=== PATIENT | female | born 1935 | race Caucasian/White ===

== ENCOUNTER 2020-09-09 14:15 | Inpatient (IN) | payer MEDICARE, OTHER ==
[~2020-09-09] VITALS: Ht 162.6 cm; Wt 68.0 kg
[2020-09-09] MEDS ORDERED: SODIUM CHLORIDE 0.9% 1000ML 1,000 ML IV STA (14:35)
[2020-09-09 14:56] LABS: BASOPHILS # (AUTO) 0.1 (0.0-0.1); BASOPHILS % 0.3 % (0.0-1.0); HEMATOCRIT 36.4 % (34.2-44.1); HEMOGLOBIN 11.9 g/dL (12.0-16.0); LYMPHOCYTES # (AUTO) 0.7 (1.0-3.2); LYMPHOCYTES % 3.4 % (18.0-39.1); MEAN CORPUSCULAR HEMOGLOBIN 31.6 pg (28-32); MEAN CORPUSCULAR HGB CONC 32.7 g/dL (31-35); MEAN CORPUSCULAR VOLUME 96.8 fL (81-99); MONOCYTES # (AUTO) 1.6 (0.2-0.8); MONOCYTES % 8.4 % (4.4-11.3); NEUTROPHILS # (AUTO) 16.8 (2.1-6.9); NEUTROPHILS % 87.2 % (38.7-80.0); PLATELET COUNT 224 x10e3/uL (140-360); RED BLOOD COUNT 3.76 x10e6/uL (3.6-5.1)
[2020-09-09 15:06] LABS: INR 0.99; PARTIAL THROMBOPLASTIN TIME 29.3 seconds (23.8-35.5); PROTHROMBIN TIME 13.6 seconds (11.9-14.5)
[2020-09-09 15:16] LABS: ALBUMIN 3.4 g/dL (3.5-5.0); ANION GAP 13.4 mmol/L (8-16); CALCIUM 9.2 mg/dL (8.4-10.2); CREATININE, SERUM 1.21 mg/dL (0.57-1.11); MAGNESIUM 2.1 MG/DL (1.3-2.1); POTASSIUM 4.4 mmol/L (3.5-5.1)
[2020-09-09 15:20] LABS: CREATINE KINASE MB 1.3 ng/mL (0-5.0)
--- OUTSIDE RECORDS SUMMARY | 2020-09-09 15:33 | XMS REPORT | Continuity of Care Document ---
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 [facility] Shortness Of Breath Active 10/13/2013 [facility] ABDMNAL PAIN GENERALIZED Active [facility] FEM GENITAL SYMPTOMS NOS Active [facility] Medications Medication Details Route Status Patient Instructions Ordering Provider Order Date Source Jentadueto 2.5-500 MG Oral Tablet (Active) [facility] Synthroid 50 MCG Oral Tablet (Active) [facility] Glimepiride 4 MG Oral Tablet (Active) Active [facility] Calcium 600+D TABS (Active) Active [facility] Iron TABS (Active) Active [facility] MagOx 400 TABS (Active) Active [facility] Multivitamins CAPS (Active) Active [facility] Donepezil HCl 10 MG Oral Tablet (Active) [facility] Ramipril 2.5 MG Oral Capsule (Active) Active [facility] Venlafaxine HCl ER 75 MG Oral Capsule Ex tended Release 24 Hour (Active) A ctive [facility] Crestor 5 MG Oral Tablet (Act abe) Active [facility] B-12 CAPS (Active) Active [facility] Allergies, Adverse Reactions, Alerts Substance Category Reaction Severity Reaction type Status Date Reported Comments Source Chem [place] Tramadol drug allergy Allergy Active [facility] Tolectin 600 drug allergy Allergy Active [facility] Tramadol drug allergy drug allergy Active [facility] [place] TABS drug allergy drug allergy Active [facility] Immunizations No Data Provided for This Section Results No Data Provided for This Section Pathology Reports No Data Provided for This Section Diagnostic Reports No Data Provided for This Section Consultation Notes No Data Provided for This Section Discharge Summaries No Data Provided for This Section History and Physicals No Data Provided for This Section Vital Signs No Data Provided for This Section Encounters Location Location Details Encounter Type Encounter Number Reason For Visit Attending Provider ADM Date DC Date Status Source [facility] Outpatient [id number] ABD PAIN, PELVIS PAIN AISLINN AGUILAR 2011 2011 Active [facility] AUDIT [id number] 10/13/2013 10/13/2013 [facility] Procedures No Data Provided for This Section Assessment and Plan No Data Provided for This Section Plan of Care No Data Provided for This Section Social History Social History Date Source Never A Smoker (Active) Activ ities Of Daily Living (Active) Exercising Erratically (Active) 10/13/2013 [facility] Family History Value Date S ource Paternal history of Cancer (Activ e) Sororal history of Ovarian Cancer (V16.41); (Active) Sororal history of Lung Cancer (V16.1); (Active) Maternal grandmother's history of Heart Disease (V17.49); (Active) Sororal history of Hypertension (V17.49); (Active) 10/13/2013 [facility] Advance Directives Order Name Results Value Date Source Advance Directives Advance Dir ectives No Advance Directives available. 10/13/2013 [facility] Functional Status No Data Provided for This Section
--- NOTE | 2020-09-09 15:57 | Diagnostic Imaging Report ---
EXAMINATION: CHEST SINGLE (PORTABLE) INDICATION: Fever, altered mental status COMPARISON: None FINDINGS: LINES/TUBES:Baclofen pump. LUNGS:The lungs are well-inflated. No focal consolidation or pulmonary edema. PLEURA:No pleural effusion or pneumothorax. MEDIASTINUM:The cardiomediastinal silhouette appears normal in size and shape. BONES/SOFT TISSUES:No acute osseous injury. Left axillary surgical clips. ABDOMEN:No free air under the diaphragm. Right upper quadrant cholecystectomy clips. IMPRESSION: No focal pneumonia or pulmonary edema. Signed by: Antonietta Rascon MD on 09/09/2020 3:54 PM
--- NOTE | 2020-09-09 16:00 | Diagnostic Imaging Report ---
CT BRAIN WO HISTORY: Altered mental status COMPARISON: Report from head CT dated 02/23/2016 Technique: Noncontrast axial scans were obtained from skull base to the vertex. Coronal and sagittal reconstructions obtained from the axial data. One or more of the following dose reduction techniques were used: Automated exposure control, adjustment of the mA and/or kV according to patient size, and/or utilization of iterative reconstruction technique. DISCUSSION: Scalp/Skull: Unremarkable. Brain sulci: Mildly prominent. Ventricles: Compensatory dilatation. Extra-axial spaces: No masses or fluid collections. Carotid and vertebral artery calcifications are present. Parenchyma: Moderate bilateral deep white matter hypodensity is likely chronic microvascular ischemic change. Otherwise, no masses, hemorrhage, or large vascular territory acute infarct. Dural sinuses: No abnormal densities. Sellar/Suprasellar region: Intact. Skull base: Intact. Incidental findings: Bilateral ocular lens replacement. IMPRESSION: 1. No acute intracranial abnormalities. 2. Moderate supratentorial chronic microvascular ischemic change. Mild generalized cerebral volume loss. Signed by: Dr. Farhan Croft M.D. on 09/09/2020 3:56 PM
--- NOTE | 2020-09-09 16:37 | Emergency Department Note ---
History of Present Illnes History of Present Illness Chief Complaint: General Medicine Complaints History of Present Illness This is a 85 year old female PT'S SON STATES PT HAS BEEN HAVING FEVERS FOR THE PAST COUPLE OF DAYS. PT SENT FROM DR. AGUILAR FOR POSSIBLE UTI. PT TEMP CURRENTLY 97.7. PT HAVING CONFUSION PER SON, AGITATION, NAUSEA. Historian: Patient, Family Member Arrival Mode: Car Loader Required: No Onset (how long ago): day(s) Radiation: Reports non-radiation Severity: moderate Onset quality: gradual Timing of current episode: intermittent Progression: waxing and waning Chronicity: new Context: Denies recent illness Relieving factors: none Exacerbating factors: none Associated symptoms: Reports denies other symptoms Past Medical/Family History Physician Review I have reviewed the patient's past medical and family history. Any updates have been documented here. Past Medical History Recent Fever: Yes Clinical Suspicion of Infectio: No New/Unexplained Change in Ment: No Past Medical History: Diabetes Other Medical History: Hyperlipidemia Dementia Neuropathy Breast CA Other Surgery: Left mastectomy Social History Smoking Cessation: Never Smoker Counseling Performed: No Alcohol Use: None Any Illegal Drug Use: No TB Exposure/Symptoms: No Physically hurt or threatened: No Family History Family history of heart diseas: No Other Last Tetanus: NO Any Pre-Existing Lines (PICC,: No Review of Systems Review of Systems Constitutional: Reports chills, Reports fever EENTM: Reports no symptoms Cardiovascular: Reports no symptoms Respiratory: Reports no symptoms Gastrointestinal: Reports no symptoms Genitourinary: Reports no symptoms Musculoskeletal: Reports no symptoms Integumentary: Reports no symptoms Neurological: Reports other (CONFUSION) Psychological: Reports no symptoms Endocrine: Reports no symptoms Hematological/Lymphatic: Reports no symptoms Physical Exam Related Data Allergies: Coded Allergies: simvastatin (Verified Allergy, MUSCLE CRAMPING WORSENED, 02/23/16) tolmetin (Verified Allergy, "ATE LINING OF MY STOMACH", 02/23/16) tramadol (Verified Allergy, ITCHING, 02/23/16) Triage Vital Signs Vital Signs Date Time Temp Pulse Resp B/P (MAP) Pulse Ox O2 Delivery O2 Flow Rate FiO2 09/09/20 14:22 97.7 98 16 120/46 98 Room Air Vital signs reviewed: Yes Physical Exam CONSTITUTIONAL Constitutional: Present well-developed, Present well-nourished HENT HENT: Present normocephalic, Present atraumatic, Present oropharynx clear/moist, Present nose normal HENT L/R: Present left ext ear normal, Present right ext ear normal EYES Eyes: Reports PERRL, Reports conjunctivae normal NECK Neck: Present ROM normal PULMONARY Pulmonary: Present effort normal, Present breath sounds normal CARDIOVASCULAR Cardiovascular: Present regular rhythm, Present heart sounds normal, Present capillary refill normal, Present normal rate GASTROINTESTINAL Abdominal: Present soft, Present nontender, Present bowel sounds normal GENITOURINARY Genitourinary: Present exam deferred SKIN Skin: Present warm, Present dry MUSCULOSKELETAL Musculoskeletal: Present ROM normal NEUROLOGICAL Neurological: Present alert, Present oriented x 3 (ALTHOUGH SLOW TO ANSWER), Present no gross motor or sensory deficits PSYCHOLOGICAL Psychological: Present mood/affect normal, Present judgement normal Results Laboratory Result Diagram: 09/09/20 1435 09/09/20 1435 Laboratory Laboratory Tests Test 09/09/20 16:05 09/09/20 14:35 White Blood Count 19.23 x10e3/uL (4.8-10.8) Red Blood Count 3.76 x10e6/uL (3.6-5.1) Hemoglobin 11.9 g/dL (12.0-16.0) Hematocrit 36.4 % (34.2-44.1) Mean Corpuscular Volume 96.8 fL (81-99) Mean Corpuscular Hemoglobin 31.6 pg (28-32) Mean Corpuscular Hemoglobin Concent 32.7 g/dL (31-35) Red Cell Distribution Width 12.0 % (11.7-14.4) Platelet Count 224 x10e3/uL (140-360) Neutrophils (%) (Auto) 87.2 % (38.7-80.0) Lymphocytes (%) (Auto) 3.4 % (18.0-39.1) Monocytes (%) (Auto) 8.4 % (4.4-11.3) Eosinophils (%) (Auto) 0.0 % (0.0-6.0) Basophils (%) (Auto) 0.3 % (0.0-1.0) Neutrophils # (Auto) 16.8 (2.1-6.9) Lymphocytes # (Auto) 0.7 (1.0-3.2) Monocytes # (Auto) 1.6 (0.2-0.8) Eosinophils # (Auto) 0.0 (0.0-0.4) Basophils # (Auto) 0.1 (0.0-0.1) Absolute Immature Granulocyte (auto 0.13 x10e3/uL (0-0.1) Prothrombin Time 13.6 seconds (11.9-14.5) Prothromb Time International Ratio 0.99 Activated Partial Thromboplast Time 29.3 seconds (23.8-35.5) Sodium Level 133 mmol/L (136-145) Potassium Level 4.4 mmol/L (3.5-5.1) Chloride Level 100 mmol/L (98-107) Carbon Dioxide Level 24 mmol/L (22-29) Anion Gap 13.4 mmol/L (8-16) Blood Urea Nitrogen 30 mg/dL (7-26) Creatinine 1.21 mg/dL (0.57-1.11) Estimat Glomerular Filtration Rate 42 ML/MIN (60-) BUN/Creatinine Ratio 25 (6-25) Glucose Level 354 mg/dL (74-118) Calcium Level 9.2 mg/dL (8.4-10.2) Magnesium Level 2.1 MG/DL (1.3-2.1) Total Bilirubin 0.6 mg/dL (0.2-1.2) Aspartate Amino Transf (AST/SGOT) 22 IU/L (5-34) Alanine Aminotransferase (ALT/SGPT) 27 IU/L (0-55) Alkaline Phosphatase 60 IU/L (40-150) Creatine Kinase 91 IU/L (29-168) Creatine Kinase MB 1.30 ng/mL (0-5.0) Troponin I 0.005 ng/mL (0-0.300) B-Type Natriuretic Peptide < 10.0 pg/mL (0-100) Total Protein 6.7 g/dL (6.5-8.1) Albumin 3.4 g/dL (3.5-5.0) Globulin 3.3 g/dL (2.3-3.5) Albumin/Globulin Ratio 1.0 (0.8-2.0) Lab results reviewed: Yes Imaging Imaging results reviewed: Yes Impressions CT BRAIN WO HISTORY: Altered mental status COMPARISON: Report from head CT dated 02/23/2016 Technique: Noncontrast axial scans were obtained from skull base to the vertex. Coronal and sagittal reconstructions obtained from the axial data. One or more of the following dose reduction techniques were used: Automated exposure control, adjustment of the mA and/or kV according to patient size, and/or utilization of iterative reconstruction technique. DISCUSSION: Scalp/Skull: Unremarkable. Brain sulci: Mildly prominent. Ventricles: Compensatory dilatation. Extra-axial spaces: No masses or fluid collections. Carotid and vertebral artery calcifications are present. Parenchyma: Moderate bilateral deep white matter hypodensity is likely chronic microvascular ischemic change. Otherwise, no masses, hemorrhage, or large vascular territory acute infarct. Dural sinuses: No abnormal densities. Sellar/Suprasellar region: Intact. Skull base: Intact. Incidental findings: Bilateral ocular lens replacement. IMPRESSION: 1. No acute intracranial abnormalities. 2. Moderate supratentorial chronic microvascular ischemic change. Mild generalized cerebral volume loss. Signed by: Dr. Farhan Croft M.D. on 09/09/2020 3:56 PM EXAMINATION: CHEST SINGLE (PORTABLE) INDICATION: Fever, altered mental status COMPARISON: None FINDINGS: LINES/TUBES:Baclofen pump. LUNGS:The lungs are well-inflated. No focal consolidation or pulmonary edema. PLEURA:No pleural effusion or pneumothorax. MEDIASTINUM:The cardiomediastinal silhouette appears normal in size and shape. BONES/SOFT TISSUES:No acute osseous injury. Left axillary surgical clips. ABDOMEN:No free air under the diaphragm. Right upper quadrant cholecystectomy clips. IMPRESSION: No focal pneumonia or pulmonary edema. Signed by: Antonietta Rascon MD on 09/09/2020 3:54 PM Procedures 12 Lead ECG Interpretation ECG Interpretation : ECG: ECG 1 Loader: Interpreted by ED physician Date: Sep 09, 2020 Time: 15:59 Rhythm: sinus rhythm (LAE, SINUS ARRHYTHMIA) Conduction: incomplete RBBB ST segments normal: Yes T wave inversion: aVR, V1 T waves flattening: V2 Clinical Impression: abnormal ECG Assessment & Plan Medical Decision Making MDM AMS, FEVER AT HOME - CBC, CHEM, CARDIACS, ECG, CXR, UA/CX, BLOOD CX'S, CT BRAIN - R/O UTI, PNEUMONIA, CEREBRAL BLEED, RENAL INSUFF, ELECTROLYTE ABNL Reassessment Reassessment ADMIT ROSSY ALMAGUER GIVEN Assessment & Plan Final Impression: (1) UTI (urinary tract infection) (2) AMS (altered mental status) (3) Renal insufficiency Depart Disposition: ADMITTED Last Vital Signs Date Time Temp Pulse Resp B/P (MAP) Pulse Ox O2 Delivery O2 Flow Rate FiO2 09/09/20 14:22 97.7 98 16 120/46 98 Room Air Medications in the ED Sodium Chloride 1,000 ml @ 0 mls/hr Q0M STAT IV ; Start 09/09/20 at 14:35; Stop 09/09/20 at 14:38; Status DC VIOLETTE MONROY MD Sep 09, 2020 16:37
--- NOTE | 2020-09-09 16:48 | NUR ---
STRAIGHT CATH UA DONE.
[2020-09-09 16:51] LABS: BILIRUBIN,URINE NEGATIVE (NEGATIVE); CLARITY,URINE SL CLOUDY (CLEAR); COLOR,URINE YELLOW (YELLOW); KETONES,URINE NEGATIVE (NEGATIVE); LEUKOCYTE ESTERASE ,URINE NEGATIVE (NEGATIVE); NITRITE,URINE POSITIVE (NEGATIVE); PROTEIN,URINE DIPSTICK NEGATIVE (NEGATIVE); URINE UROBILINOGEN 0.2 mg/dL (0.2 - 1)
[2020-09-09 17:01] LABS: BACTERIA,URINE MANY /HPF; RBC,URINE 0-5 /HPF (0-5)
[2020-09-09] MEDS ORDERED: DEXTROSE 50% SYRINGE 50 ML IV PRN (17:15)
[2020-09-09] MEDS ORDERED: ONDANSETRON HCL INJ 2MG/ML 2ML 2 MG/ML VIAL IV PRN (17:15)
--- OUTSIDE RECORDS SUMMARY | 2020-09-09 17:34 | XMS REPORT | Continuity of Care Document ---
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 [facility] Shortness Of Breath Active 10/13/2013 [facility] ABDMNAL PAIN GENERALIZED Active [facility] FEM GENITAL SYMPTOMS NOS Active [facility] Medications Medication Details Route Status Patient Instructions Ordering Provider Order Date Source Jentadueto 2.5-500 MG Oral Tablet (Active) [facility] Synthroid 50 MCG Oral Tablet (Active) [facility] Glimepiride 4 MG Oral Tablet (Active) [facility] Calcium 600+D TABS (Active) [facility] Iron TABS (Active) [facility] MagOx 400 TABS (Active) Active [facility] Multivitamins CAPS (Active) Active [facility] Donepezil HCl 10 MG Oral Tablet (Active) [facility] Ramipril 2.5 MG Oral Capsule (Active) [facility] Venlafaxine HCl ER 75 MG Oral Capsule Ex tended Release 24 Hour (Active) A ctive [facility] Crestor 5 MG Oral Tablet (Act abe) [facility] B-12 CAPS (Active) Active [facility] Allergies, Adverse Reactions, Alerts Substance Category Reaction Severity Reaction type Status Date Reported Comments Source Chem [place] Tramadol drug allergy Allergy Active [facility] Tolectin 600 drug allergy Allergy Active [facility] Tramadol drug allergy drug allergy Active [facility] [place] TABS drug allergy drug allergy Active [facility] Immunizations No Data Provided for This [...] Provider ADM Date DC Date Status Source [facility] Outpatient [id number] ABD PAIN, PELVIS PAIN AISLINN AGUILAR 2011 2011 Active [facility] AUDIT [id number] 10/13/2013 10/13/2013 [facility] Procedures No Data Provided for This Section Assessment and Plan No Data Provided for This Section Plan of Care No Data Provided for This Section Social History Social History Date Source Never A Smoker (Active) Activ ities Of Daily Living (Active) Exercising Erratically (Active) 10/13/2013 [facility] Family History Value Date S ource Paternal history of Cancer (Activ e) Sororal history of Ovarian Cancer (V16.41); (Active) Sororal history of Lung Cancer (V16.1); (Active) Maternal grandmother's history of Heart Disease (V17.49); (Active) Sororal history of Hypertension (V17.49); (Active) 10/13/2013 [facility] Advance Directives Order Name Results Value Date Source Advance Directives Advance Dir ectives No Advance Directives available. 10/13/2013 [facility] Functional Status No Data Provided for This Section
--- OUTSIDE RECORDS SUMMARY | 2020-09-09 17:34 | XMS REPORT | Continuity of Care Document ---
Author Author [facility] Organization [facility] Address [facility]ly [facility] [place] [address] Phone Unavailable Care Team Providers Care Water Supply Technician Name Role Phone Sujata MONROY Attphys Unavailable Problems Condition Name Condition Details Condition Category Status Onset Date Resolution Date Last Treatment Date Treating Clinician Comments Source ABD PAIN, PELVIS PAIN ABD PAIN, PELVIS PAIN Active 08/13/2011 [facility] Diagnosis Active 2011-08-13 00:00:00 2011-09-04 10:48: 00 [facility] [place] 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/2013 [facility] Problem Active 2013-10-13 20:49:22 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 Shortness Of Breath Shor tness Of Breath Active 10/13/2013 [facility] Problem Active 2013-10-13 20:49:22 [facility] ABDMNAL PAIN GENERALIZED ABDM NAL PAIN GENERALIZED Active [facility] Diagnosis Active 2011-09-04 10:48:00 [facility] [place] FEM GENITAL SYMPTOMS NOS FEM GENITAL SYMPTOMS NOS Active [facility] Diagnosis Active 2011-09-04 10:48:00 [facility] [place] Allergies, Adverse Reactions, Alerts Allergy Name Allergy Type Status Severity Reaction(s) Onset Date Inacti ve Date Treating Clinician Comments Source Chem [place] Tramadol [place] Tramadol [facility] Tolectin [address] [facility] Tramadol Tramadol Active [facility] [place] Tolectin TABS Tolectin TABS Active [facility] Family History Family Member Diagnosis Comments Start Date Stop Date Source Unknown Family Member Family History 2013-10-13 20:49:22 2 20:49:22 [facility] Social History Social Habit Start Date Stop Date Quantity Comments Source Social History 2013-10-13 20:49:22 2013-10-13 20:49:22 [facility] [place] Medications Ordered Medication Name Filled Medication Name Start Date Stop Da te Current Medication? Ordering Clinician Indication Dosage Frequency Signature (SIG) Comments Components Source Jentadueto 2.5-500 MG Oral Tablet 2013-10-13 20:49:22 Yes (Active) [facility] [place] Synthroid 50 MCG Oral Tablet 2013-10-13 20:49:22 Yes (Active) [facility] [place] Glimepiride 4 MG Oral Tablet 2013-10-13 20:49:22 Yes (Active) [facility] [place] Calcium 600+D TABS 2013-10-13 20:49:22 Yes (Active) [facility] [place] Iron TABS 2013-10-13 20:49:22 Yes (Active) [facility] [place] MagOx 400 TABS 2013-10-13 20:49:22 Yes (Act abe) [facility] [place] Multivitamins CAPS 2013-10-13 20:49:22 Yes (Active) [facility] [place] Donepezil HCl 10 MG Oral Tablet 2013-10-13 20:49:22 Yes (Active) [facility] [place] Ramipril 2.5 MG Oral Capsule 2013-10-13 20:49:22 Yes (Active) James Singh Venlafaxine HCl ER 75 MG Oral Capsule Extended Release 24 Ho ur 2013-10-13 20:49:22 Yes (Active) [facility] [place] Crestor 5 MG Oral Tablet 2013-10-13 20:49:22 Yes (Active) [facility] [place] B-12 CAPS 2013-10-13 20:49:22 Yes (Active) [facility] [place] Procedures This patient has no known procedures. Encounters Start Date/Time End Date/Time Encounter Type Admission Type [facility] Care Department Encounter ID Source 2013-10-13 14:49:22 2013-10-13 14:49:22 Outpatient [facility] [id number] Results Test Description Test Time Test Comments Results Result Comments Source CHEST SINGLE (PORTABLE) 2020-09-09 15:53:00 [facility] 1935 Sex: F [facility] [address] [address] Patient Name: HERBIE PINON MR #: [id number] : 1935 Age/Sex: 85/F Req #: [id number] Adm Physician: Ordered by: VIOLETTE MONROY MD Report #: [id number] Location: ER Room/Bed: Procedure: [id number] DX/CHEST SINGLE (PORTABLE) Exam Date: 09/09/20 Exam Time: 1529 REPORT STATUS: Signed EXAMINATION: CHEST SINGLE (PORTABLE) INDICATION: Fever, altered mental status COMPARISON: None FINDINGS: LINES/TUBES:Baclofen pump. LUNGS:The lungs are well-inflated. No focal consolidation or pulmonary edema. PLEURA:No pleural effusion or pneumothorax. MEDIASTINUM:The cardiomediastinal silhouette appears normal in size and shape. BONES/SOFT TISSUES:No acute osseous injury. Left axillary surgical clips. ABDOMEN:No free air under the diaphragm. Right upper quadrant cholecystectomy clips. IMPRESSION: No focal pneumonia or pulmonary edema. Signed by: Jerica Lira MD on 2019 3:54 PM Dictated By: JERICA LIRA MD 53 Transcribed By: SIVAN on 09/09/201553 COPY TO: VIOLETTE MONROY MD CT BRAIN WO 2020-09-09 15:53:00 [facility] 1935 Sex: [place] [address] Patient Name: HERBIE PINON MR #: [id number] : 1935 Age/Sex: 85/F Req #: [id number] [facility] Physician: Ordered by: VIOLETTE MONROY MD Report #: [id number] Location: Room/Bed: Procedure: [id number] CT/CT BRAIN WO Exam Date: 09/09/20 Exam Time: 1529 REPORT STATUS: Signed CT BRAIN WO HISTORY: Altered mental status COMPARISON: Report from head CT dated 02/23/2016 Technique: Noncontrast axial scans were obtained from skull base to the vertex. Coronal and sagittal reconstructions obtained from the axial data. One or more of the following dose reduction techniques were used: Automated exposure control, adjustment of the mA and/or kV according to patient size, and/or utilization of iterative reconstruction technique. DISCUSSION: Scalp/Skull: Unremarkable. Brain sulci: Mildly prominent. Ventricles: Compensatory dilatation. Extra-axial spaces: No masses or fluid collections. Carotid and vertebral artery calcifications are present. Parenchyma: Moderate bilateral deep white matter hypodensity is likely chronic microvascular ischemic change. Otherwise, no masses, hemorrhage, or large vascular territory acute infarct. Dural sinuses: No abnormal densities. Sellar/Suprasellar region: Intact. Skull base: Intact. Incidental findings: Bilateral ocular lens replacement. IMPRESSION: 1. No acute intracranial abnormalities. 2. Moderate supratentorial chronic microvascular ischemic change. Mild generalized cerebral volume loss. Signed by: Dr. Farhan Croft M.D. on 09/09/2020 3:56 PM Dictated By: FARHAN CROFT MD [id number] Transcribed By: SIVAN on 09/09/20 5062 COPY TO: VIOLETTE MONROY MD
--- NOTE | 2020-09-09 17:46 | NUR ---
NURSE GRAHAM BUSY WITH SX PT PER CHANNEL INSTALLER DHARA AND CANNOT TAKE REPORT
[2020-09-09] MEDS: CEFTRIAXONE SOD 1 GM/NS 50 ML 50 ML IV SCH (18:04)
[2020-09-09] MEDS: SODIUM CHLORIDE 0.9% 1000ML 1,000 ML IV SCH ×2 (18:04→20:43)
--- NOTE | 2020-09-09 18:11 | NUR ---
3RD TRY TO GIVE REPORT
[2020-09-09] MEDS ORDERED: CEFTRIAXONE SOD 1 GM VIAL ONE (18:13)
--- NOTE | 2020-09-09 18:17 | NUR ---
CALLED HOUSE SUP AFTER LEFT ON HOLD 6 MINS TO GIVE REPORT, HE STATES TO CALL [facility] PHONE. CALLED [phone], NO ANSWER. CALLED BACK TO NOTIFY.
[2020-09-09] MEDS ORDERED: LORAZEPAM INJ 2 MG/ML VIAL IV PRN (19:15)
[2020-09-09] MEDS ORDERED: ACETAMINOPHEN 325 MG TAB PO PRN (19:15)
[2020-09-09] MEDS ORDERED: HYDRALAZINE HCL 20 MG/ML VIAL IV PRN (19:15)
[2020-09-09 20:00] VITALS: BP 130/52
--- NOTE | 2020-09-09 20:00 | NUR ---
patient is a new admit that arrived via stretcher. patient is awake and talking. patient has been helped into the bed. bed is in lowest position and call light is within reach. will continue to monitor patient.
[2020-09-09 20:17] VITALS: BP 130/52
[2020-09-09 20:38] VITALS: BP 130/52
[2020-09-09] MEDS: INSULIN LISPRO 100 UNIT/1 ML 3ML VIAL SQ SCH (22:52)
[2020-09-09 23:53] VITALS: BP 123/70
[2020-09-10] VITALS (7 sets, daily range): BP systolic 120–147; BP diastolic 44–63
[2020-09-10] MEDS ORDERED: MAGNESIUM OXID400 MG PO (04:12)
[2020-09-10] MEDS ORDERED: GLIMEPIRIDE2 MG PO (04:12)
[2020-09-10] MEDS ORDERED: VENLAFAXINE HCL75 MG PO (04:12)
[2020-09-10] MEDS ORDERED: LEVOTHYROXINE50 MCG PO (04:12)
[2020-09-10] MEDS ORDERED: RAMIPRIL5 MG PO (04:12)
[2020-09-10] MEDS ORDERED: DONEPEZIL HCL10 MG PO (04:12)
[2020-09-10] MEDS ORDERED: JARDIANCE25 MG PO (04:12)
[2020-09-10] MEDS ORDERED: JENTADUETO 2.51 EAC2 PO (04:12)
[2020-09-10] MEDS ORDERED: MULTI-VITAMIN1 EACH PO (04:12)
[2020-09-10] MEDS ORDERED: OXYBUTYNIN CHLOR5 MG PO (04:12)
[2020-09-10] MEDS ORDERED: NAMENDA10 MG PO (04:12)
[2020-09-10] MEDS ORDERED: ASPIRIN CHEW81 MG PO (04:12)
[2020-09-10] MEDS: CEFTRIAXONE SOD 1 GM/NS 50 ML 50 ML IV SCH ×2 (05:23→17:44)
[2020-09-10 06:14] LABS: BASOPHILS % 0.3 % (0.0-1.0); EOSINOPHILS % 0.1 % (0.0-6.0); HEMATOCRIT 34.7 % (34.2-44.1); HEMOGLOBIN 11.4 g/dL (12.0-16.0); LYMPHOCYTES # (AUTO) 1.3 (1.0-3.2); LYMPHOCYTES % 10.7 % (18.0-39.1); MEAN CORPUSCULAR HEMOGLOBIN 31.6 pg (28-32); MEAN CORPUSCULAR HGB CONC 32.9 g/dL (31-35); MEAN CORPUSCULAR VOLUME 96.1 fL (81-99); MONOCYTES % 8.1 % (4.4-11.3); NEUTROPHILS # (AUTO) 9.5 (2.1-6.9); NEUTROPHILS % 80.3 % (38.7-80.0); PLATELET COUNT 208 x10e3/uL (140-360); RED BLOOD COUNT 3.61 x10e6/uL (3.6-5.1); RED CELL DISTRIBUTION WIDTH 12.1 % (11.7-14.4)
[2020-09-10 06:51] LABS: ALANINE AMINOTRANSFERASE 22 IU/L (0-55); ALBUMIN/GLOBULIN RATIO 0.9 (0.8-2.0); ALKALINE PHOSPHATASE 56 IU/L (40-150); ANION GAP 11.7 mmol/L (8-16); BLOOD UREA NITROGEN 25 mg/dL (7-26); BUN/CREATININE RATIO 31 (6-25); CALCIUM 8.9 mg/dL (8.4-10.2); CARBON DIOXIDE 23 mmol/L (22-29); CHLORIDE 109 mmol/L (98-107); EST GLOMERULAR FILTRATION RATE > 60 ML/MIN (60-); GLUCOSE 174 mg/dL (74-118); POTASSIUM 3.7 mmol/L (3.5-5.1); SODIUM 140 mmol/L (136-145)
[2020-09-10 07:30] LABS: CREATINE KINASE MB 0.8 ng/mL (0-5.0)
[2020-09-10] MEDS ORDERED: CEFDINIR300 MG PO (07:39)
[2020-09-10] MEDS ORDERED: COQ-10100 MG PO (08:06)
[2020-09-10] MEDS ORDERED: CRESTOR10 MG PO (08:06)
[2020-09-10] MEDS ORDERED: VITAMIN B-121000 MC2 SL (08:06)
[2020-09-10] MEDS ORDERED: OYSTER SHELL C1 EA12 PO (08:06)
[2020-09-10] MEDS: LEVOTHYROXINE SODIUM 50 MCG TAB PO SCH (08:48)
[2020-09-10] MEDS: MEMANTINE 10 MG TAB PO SCH ×2 (08:48→17:40)
[2020-09-10] MEDS: FAMOTIDINE 20 MG TAB PO SCH ×2 (08:48→17:40)
[2020-09-10] MEDS: MAGNESIUM OXIDE 400 MG TAB PO SCH (08:48)
[2020-09-10] MEDS: MULTIVITAMINS/MINERALS TAB PO SCH (08:48)
[2020-09-10] MEDS: ASPIRIN 81 MG CHEW TAB PO SCH (08:48)
[2020-09-10] MEDS: INSULIN LISPRO 100 UNIT/1 ML 3ML VIAL SQ SCH ×4 (08:52→21:00)
--- NOTE | 2020-09-10 14:07 | NUR ---
LAB CALLED WITH RESULTS THAT THE BLOOD CULTURE HAS GRAM VARIABLE RODS. NOTIFIED MADELEINE SARAH NP. NO ORDERS RECEIVED
[2020-09-10 15:09] LABS: CREATINE KINASE 57 IU/L (29-168)
--- NOTE | 2020-09-10 15:39 | NUR ---
CALL TO THE PT. NO ANSWER. CALL TO PT'S SON, CARMEN PINON @ [phone]. STATES HE CARES FOR HIS MOTHER. STATES THEY HAVE TRIED HOME HEALTH IN THE PAST AND HAVE NOT HAD GOOD OUTCOME. STATES THE NURSES COME WHEN SHE ASLEEP AND USUALLY RUN LATE OR NOT AT ALL. STATES THEY HAVE 2 AGENCIES AND WOULD NOT LIKE HOME HEALTH AT THIS TIME. STATES HE CHECKS HE BP AND TAKES HER TEMP DAILY. STATES THE PLAN IS FOR HIS MOM TO DC ON SATURDAY. ENCOURAGED SON TO CALL IF HE HAD ANY CONCERNS AT DISCHARGE.
[2020-09-10] MEDS ORDERED: DONEPEZIL HCL 5 MG TAB PO SCH (21:00)
[2020-09-10] MEDS ORDERED: VENLAFAXINE HCL 75 MG TAB PO SCH (21:00)
[2020-09-10] MEDS ORDERED: RAMIPRIL 2.5 MG CAP PO SCH (21:00)
[2020-09-10] MEDS ORDERED: OXYBUTYNIN CHLORIDE 5 MG TAB PO SCH (21:00)
[2020-09-11] VITALS: BP 146/82
[2020-09-11 04:00] VITALS: BP 139/62
[2020-09-11] MEDS: CEFTRIAXONE SOD 1 GM/NS 50 ML 50 ML IV SCH (05:43)
[2020-09-11 07:58] LABS: BASOPHILS % 0.5 % (0.0-1.0); EOSINOPHILS % 0.4 % (0.0-6.0); HEMATOCRIT 34.2 % (34.2-44.1); HEMOGLOBIN 11.4 g/dL (12.0-16.0); LYMPHOCYTES % 12.6 % (18.0-39.1); MEAN CORPUSCULAR HEMOGLOBIN 32.2 pg (28-32); MEAN CORPUSCULAR HGB CONC 33.3 g/dL (31-35); MEAN CORPUSCULAR VOLUME 96.6 fL (81-99); MONOCYTES # (AUTO) 0.8 (0.2-0.8); MONOCYTES % 9.8 % (4.4-11.3); NEUTROPHILS # (AUTO) 6.3 (2.1-6.9); NEUTROPHILS % 76.5 % (38.7-80.0); PLATELET COUNT 202 x10e3/uL (140-360); RED BLOOD COUNT 3.54 x10e6/uL (3.6-5.1)
[2020-09-11 08:20] VITALS: BP 152/69
[2020-09-11 08:22] LABS: ANION GAP 13.6 mmol/L (8-16); BLOOD UREA NITROGEN 17 mg/dL (7-26); BUN/CREATININE RATIO 25 (6-25); CALCIUM 8.3 mg/dL (8.4-10.2); CARBON DIOXIDE 21 mmol/L (22-29); CHLORIDE 106 mmol/L (98-107); CREATININE, SERUM 0.69 mg/dL (0.57-1.11); EST GLOMERULAR FILTRATION RATE > 60 ML/MIN (60-); GLUCOSE 137 mg/dL (74-118); POTASSIUM 3.6 mmol/L (3.5-5.1); SODIUM 137 mmol/L (136-145)
[2020-09-11] MEDS: MEMANTINE 10 MG TAB PO SCH (08:29)
[2020-09-11] MEDS: LEVOTHYROXINE SODIUM 50 MCG TAB PO SCH (08:29)
[2020-09-11] MEDS: FAMOTIDINE 20 MG TAB PO SCH (08:29)
[2020-09-11] MEDS: ASPIRIN 81 MG CHEW TAB PO SCH (08:29)
[2020-09-11] MEDS: MULTIVITAMINS/MINERALS TAB PO SCH (08:30)
[2020-09-11] MEDS: INSULIN LISPRO 100 UNIT/1 ML 3ML VIAL SQ SCH (08:30)
[2020-09-11] MEDS: MAGNESIUM OXIDE 400 MG TAB PO SCH (08:30)
[2020-09-11 09:30] VITALS: BP 152/69
[2020-09-11] MEDS ORDERED: CEFUROXIME250 MG PO (10:02)
--- NOTE | 2020-09-12 03:33 | Discharge Summary ---
ADMISSION DIAGNOSES: 1. Urinary tract infection with sepsis, present on admission. 2. Acute metabolic encephalopathy secondary to urinary tract infection, present on admission. 3. Dementia. 4. Type 2 diabetes. 5. Hypothyroidism. 6. Acute kidney injury, present on admission. 7. Hypertension. DISCHARGE DIAGNOSES: 1. Urinary tract infection with sepsis, present on admission. 2. Acute metabolic encephalopathy secondary to urinary tract infection, present on admission. 3. Dementia. 4. Type 2 diabetes. 5. Hypothyroidism. 6. Acute kidney injury, present on admission. 7. Hypertension. 8. Escherichia coli urinary tract infection, present on admission with sepsis. HISTORY: Type 2 diabetes, hypertension, hypothyroidism, dementia, breast cancer, chronic pain, and urinary retention. SURGICAL HISTORY: Pain pump implantation, left mastectomy, and hysterectomy. FAMILY HISTORY: The patient's son had diabetes. The patient's daughter had cancer. SOCIAL HISTORY: Noncontributory. HOSPITAL COURSE: An 85-year-old female admits from home due to fever of 101.6 prior to admission and increased confusion per son's report. The patient has dementia, but does admit to having dysuria. Limited HPI and history due to dementia. On admission, UA showed wbc. Urine culture was sent and came back for E. coli. The patient was started on Rocephin and the white count improved as well as her mental status. She will discharge home with new prescriptions for Ceftin for 4 more days. It appears the patient is back to her baseline mental status per her son's report. She will follow up with primary care in 1 to 2 weeks. The patient and son understand instructions and agrees to plan. Dictated by Shereen Ferris NP MD NAYELY Castro/MODL /[id number]
== END 2020-09-11 12:00 | disposition home or self-care (01) | DRG 871 ==
LOC: ER 14:40 → ERHOLD 17:06 → MED/SURG3 20:00
PROVIDERS: ADMIT Internal Medicine; ATTEND Internal Medicine
DX: A41.51 Sepsis due to Escherichia coli [E. coli] (principal); G93.41 Metabolic encephalopathy; N39.0 Urinary tract infection, site not specified; N17.9 Acute kidney failure, unspecified; R65.20 Severe sepsis without septic shock; I10 Essential (primary) hypertension; F03.90 Unspecified dementia, unspecified severity, without behavioral disturbance, psychotic disturbance, mood disturbance, and anxiety; Z85.3 Personal history of malignant neoplasm of breast; B96.20 Unspecified Escherichia coli [E. coli] as the cause of diseases classified elsewhere; E03.9 Hypothyroidism, unspecified; Z11.59 Encounter for screening for other viral diseases; G89.29 Other chronic pain
CPT/HCPCS: 36415; 70450; 71045; 80048; 80053; 81001; 82140; 82550; 82553; 82948; 83690; 83735; 83880; 84484; 85025; 85610; 85730; 87040; 87071; 87086; 87186; 87205; 93005; 99284; J0696; J7030

== ENCOUNTER 2020-09-22 23:28 | Emergency (ER) | payer MEDICARE, BC ==
[~2020-09-22] VITALS: Ht 162.6 cm; Wt 68.0 kg
[~2020-09-22 23:28] MED LIST: ASPIRIN CHEW81 MG PO; CEFDINIR300 MG PO; CEFUROXIME250 MG PO; COQ-10100 MG PO; CRESTOR10 MG PO; DONEPEZIL HCL10 MG PO; GLIMEPIRIDE2 MG PO; JARDIANCE25 MG PO; JENTADUETO 2.51 EAC2 PO; LEVOTHYROXINE50 MCG PO; MAGNESIUM OXID400 MG PO; MULTI-VITAMIN1 EACH PO; NAMENDA10 MG PO; OXYBUTYNIN CHLOR5 MG PO; OYSTER SHELL C1 EA12 PO; RAMIPRIL5 MG PO; VENLAFAXINE HCL75 MG PO; VITAMIN B-121000 MC2 SL
--- NOTE | 2020-09-22 23:52 | Emergency Department Note ---
History of Present Illnes History of Present Illness Chief Complaint: Hypertension History of Present Illness This is a 85 year old female PRESENTS TO THE ED FOR CONCERNS OF HIGH BLOOD PRESSURE READINGS AT HOME. DENIES SHORTNESS OF BREATH, CHEST PAIN, OR DIZZINESS. PATIENT IS NOT UNDER ANY DISTRESS AT THIS MOMENT. PT HAS HISTORY OF DEMENTIA, PER SON SHE WAS ACTING LIKE SHE HAD A HEADACHE EARLIER WHICH IS WHY HE CHECKED HER BLOOD PRESSURE. Historian: Patient Arrival Mode: Car Onset (how long ago): hour(s) (2) Location: HEAD Quality: ELEVATED BLOOD PRESSURE Radiation: Reports non-radiation Severity: mild Onset quality: unable to specify Duration (how long): hour(s) (2) Timing of current episode: constant Progression: unable to specify Chronicity: recurrent Context: Denies recent illness, Denies recent surgery Relieving factors: none Exacerbating factors: none Associated symptoms: Reports denies other symptoms Past Medical/Family History Physician Review I have reviewed the patient's past medical and family history. Any updates have been documented here. Past Medical History Recent Fever: No Clinical Suspicion of Infectio: No New/Unexplained Change in Ment: No Past Medical History: Diabetes Other Medical History: Hyperlipidemia Dementia Neuropathy Breast CA Other Surgery: Left mastectomy Social History Smoking Cessation: Never Smoker Alcohol Use: None Any Illegal Drug Use: No Family History Family history of heart diseas: No Other Last Tetanus: NO Any Pre-Existing Lines (PICC,: No Review of Systems Review of Systems Constitutional: Reports no symptoms EENTM: Reports no symptoms Cardiovascular: Reports no symptoms Respiratory: Reports no symptoms Gastrointestinal: Reports no symptoms Genitourinary: Reports no symptoms Musculoskeletal: Reports no symptoms Integumentary: Reports no symptoms Neurological: Reports as per HPI Psychological: Reports no symptoms Endocrine: Reports no symptoms Hematological/Lymphatic: Reports no symptoms Physical Exam Related Data Allergies: Coded Allergies: simvastatin (Verified Allergy, Unknown, MUSCLE CRAMPING WORSENED, 09/09/20) tolmetin (Verified Allergy, Unknown, "ATE LINING OF MY STOMACH", 09/09/20) tramadol (Verified Allergy, Unknown, ITCHING, 09/09/20) Triage Vital Signs Vital Signs Date Time Temp Pulse Resp B/P (MAP) Pulse Ox O2 Delivery O2 Flow Rate FiO2 09/22/20 23:32 98.0 73 16 170/82 99 Vital signs reviewed: Yes Physical Exam CONSTITUTIONAL Constitutional: Present well-developed, Present well-nourished; Absent distressed HENT HENT: Present normocephalic, Present atraumatic, Present oropharynx clear/moist, Present nose normal HENT L/R: Present left ext ear normal, Present right ext ear normal EYES Eyes: Reports PERRL, Reports conjunctivae normal NECK Neck: Present ROM normal PULMONARY Pulmonary: Present effort normal, Present breath sounds normal CARDIOVASCULAR Cardiovascular: Present regular rhythm, Present heart sounds normal, Present capillary refill normal, Present normal rate GASTROINTESTINAL Abdominal: Present soft, Present nontender, Present bowel sounds normal GENITOURINARY Genitourinary: Present exam deferred SKIN Skin: Present warm, Present dry MUSCULOSKELETAL Musculoskeletal: Present ROM normal NEUROLOGICAL Neurological: Present alert, Present oriented x 3, Present no gross motor or sensory deficits PSYCHOLOGICAL Psychological: Present mood/affect normal, Present judgement normal Results Imaging Imaging results reviewed: Yes Impressions Procedure: [id number] CT/CT BRAIN WO Exam Date: Exam Time: REPORT STATUS: Signed Examination: CT head without contrast Clinical Indication: ^N ^ELEVATED BP, HEADACHE ^Y. Technique: Transaxial noncontrast images from the skull base through the vertex were obtained. Sagittal and coronal reformatted images were done. Dose modulation, iterative reconstruction, and/or weight based adjustment of the mA/kV was utilized to reduce the radiation dose to as low as reasonably achievable. Comparison: 09/09/2020. Findings: Scalp: No abnormalities. Bones: Intact. No fractures. No blastic or lytic lesions. Brain sulci: Generalized volume loss for patient's age. Ventricles: No hydrocephalus. Extra-axial space: No abnormalities. Parenchyma: Again seen are patchy and confluent areas of low-attenuation within subcortical and periventricular white matter, nonspecific, but could represent microvascular ischemic disease. No masses, hemorrhage, or acute or chronic cortical based vascular insults. Suprasellar region: No abnormalities. Craniocervical junction: The foramen magnum is patent. No Chiari one malformation. Impression: 1. No acute intracranial finding. 2. Unchanged chronic microvascular ischemic change and generalized volume loss when compared to prior head CT dated 09/09/2020. Signed by: Dr. Ina Hernandez M.D. on 09/23/2020 12:53 AM Dictated By: INA WEINSTEIN MD Transcribed By: SIVAN on 09/23/2052 COPY TO: PATRICIA ABRAHAM MD~ Assessment & Plan Medical Decision Making MDM PT WITH ELEVATED BLOOD PRESSURE CT BRAIN ORDERED TO EVAL FOR SUBDURAL BLEED, SUBARACHNOID BLEED Assessment & Plan Final Impression: (1) HTN (hypertension) Depart Disposition: HOME, SELF-CARE Last Vital Signs Date Time Temp Pulse Resp B/P (MAP) Pulse Ox O2 Delivery O2 Flow Rate FiO2 09/22/20 23:32 98.0 73 16 170/82 99 Home Meds Active Scripts Cefuroxime Axetil (CEFUROXIME) 250 Mg Tablet, 500 MG PO Q12H for 4 Days, TAB Prov:MADELEINE SARAH EGG SORTER 09/11/20 Reported Medications Calcium Carbonate/Vitamin D3 (OYSTER SHELL CALCIUM + D TAB) 1 Each Tablet, 1 TAB PO DAILY 09/10/20 Ubidecarenone (COQ-10) 100 Mg Capsule, 200 MG PO DAILY 09/10/20 Rosuvastatin Calcium (CRESTOR) 10 Mg Tab, 5 MG PO HS THERAPEUTICALLY SUBSTITUTED WITH SIMVASTATIN 40MG 09/10/20 Cyanocobalamin (Vitamin B-12) (VITAMIN B-12) 1,000 Mcg Tab.subl, 5000 MCG SL DAILY 09/10/20 Linagliptin/Metformin Hcl (JENTADUETO 2.5 MG-1000 MG TAB) 1 Each Tablet, 1 TAB PO BID 09/10/20 Multivitamin (MULTI-VITAMIN DAILY) 1 Each Tablet, 1 TAB PO DAILY 09/10/20 Magnesium Oxide (MAGNESIUM OXIDE) 400 Mg Tablet, 400 MG PO DAILY, TAB 09/10/20 Oxybutynin Chloride (OXYBUTYNIN CHLORIDE) 5 Mg Tablet, 10 MG PO HS, #30 TAB 09/10/20 Venlafaxine Hcl (VENLAFAXINE HCL) 75 Mg Tab, 75 MG PO HS, #30 TAB 09/10/20 Ramipril (RAMIPRIL) 5 Mg Capsule, 2.5 MG PO HS, #30 TAB 09/10/20 Donepezil Hcl (DONEPEZIL HCL) 10 Mg Tablet, 1 TAB PO HS 09/10/20 Aspirin (ASPIRIN CHEW) 81 Mg Chew, 81 MG PO DAILY, #30 TAB 09/10/20 Levothyroxine Sodium (LEVOTHYROXINE SODIUM) 50 Mcg Tablet, 50 MCG PO DAILY, #30 TAB 09/10/20 Glimepiride (GLIMEPIRIDE) 2 Mg Tablet, 6 MG PO DAILY, TAB 09/10/20 Empagliflozin (Jardiance) 25 Mg Tablet, 1 TAB PO DAILY 09/10/20 Memantine Hcl (NAMENDA) 10 Mg Tablet, 10 MG PO BID, TAB 09/10/20 PATRICIA ABRAHAM MD Sep 22, 2020 23:51
--- NOTE | 2020-09-23 00:56 | Diagnostic Imaging Report ---
Examination: CT head without contrast Clinical Indication: ^N ^ELEVATED BP, HEADACHE ^Y. Technique: Transaxial noncontrast images from the skull base through the vertex were obtained. Sagittal and coronal reformatted images were done. Dose modulation, iterative reconstruction, and/or weight based adjustment of the mA/kV was utilized to reduce the radiation dose to as low as reasonably achievable. Comparison: 09/09/2020. Findings: Scalp: No abnormalities. Bones: Intact. No fractures. No blastic or lytic lesions. Brain sulci: Generalized volume loss for patient's age. Ventricles: No hydrocephalus. Extra-axial space: No abnormalities. Parenchyma: Again seen are patchy and confluent areas of low-attenuation within subcortical and periventricular white matter, nonspecific, but could represent microvascular ischemic disease. No masses, hemorrhage, or acute or chronic cortical based vascular insults. Suprasellar region: No abnormalities. Craniocervical junction: The foramen magnum is patent. No Chiari one malformation. Impression: 1. No acute intracranial finding. 2. Unchanged chronic microvascular ischemic change and generalized volume loss when compared to prior head CT dated 09/09/2020. Signed by: Dr. Ina Hernandez M.D. on 09/23/2020 12:53 AM
[2020-09-23 01:02] VITALS: BP 169/64
--- OUTSIDE RECORDS SUMMARY | 2020-09-24 09:53 | XMS REPORT | Clinical Summary ---
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 & Routine 09/09/2020 Infec tion REF LABS) 4:05 PM RELAY TECHNICIAN after 09/23/2019 Results * SARS-CoV2/RT-PCR ([facility] & Ref Labs) (09/09/2020 4:05 PM RELAY TECHNICIAN) SARS-COV2/RT-PC Negative Not Detected, [facility] R Negative, See [facility] external report for [facility] linked test SARS-COV-2 [facility] PERFORMING LAB [facility] Specimen Other - Nasopharyngeal wall structure (body structure) Narrative Performed At Negative result for this test determine s that SARS-CoV-2 RNA was not present in [facility] the specimen above the Limit of Detecti on (LOD). However, Negative results do [facility] not preclude SARS-CoV-2 infection and s hould not be used as the sole basis for treatment or patient management decisio ns. Negative results must be combined with clinical observations, patient his tory, and epidemiological information. A false negative result may occur if a sp ecimen is improperly collected, transported or handled. A false negat abe result should be considered if patient's recent exposures or clinical presentation indicate that COVID-19 (SARS-CoV-2) is likely and diagnostic t ests for other causes of illness are negative. Re-testing should be consid ered in cases of suspected false negatives. The limit of detection for this assay i s 100 copies/mL. This SARS CoV-2 test is a real-time RT- PCR test intended for the qualitative detection of nucleic acid from SARS-CoV -2 in a nasopharyngeal swab specimen collected from individuals suspected of COVID-19 by their healthcare provider. This test has not been Food and Drug Ad ministration (FDA) cleared or approved. This is a modified version of an appr nahed Emergency Use Authorization (EUA) and is in the process of review by the FDA. Once authorized by the FDA, the issued EUA will be effective until the declaration that circumstances exist justifying the authorization of the jamil rgency use of in vitro diagnostic tests for detection and/or diagnosis of COVID -19 is terminated under Section 564(b)(2) of the Act or the EUA is revoked under Section 564(g) of the Act. Testing was performed using the [employer] SARS-CoV-2 assay. Fact Sheet for Healthcare Providers: https://www.molecular.mcmahon/carole/RT_SAR E-YhM-7_PJP_Dgkj_Qwlko_96-378040.pdf Fact Sheet for Healthcare Patients: https://www.molecular.mcmahon/carole/RW_MUQE-RvO-2_Huxkkvb_Jsdu_Acrzt_WA_15-830741L8 .pdf Performing Laboratory: [address] [place] [address] Performing Organization Address City/State/Zipcode Ph one Number [place] [address] [facility] after 09/23/2019 Insurance Type Payer Benefit Subscriber ID Effective Phone Address Plan / Dates Group Medicare MEDICARE MEDICARE A [id number] 2002- B Present [phone]
--- OUTSIDE RECORDS SUMMARY | 2020-09-24 09:53 | XMS REPORT | Continuity of Care Document ---
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 [facility] Shortness Of Breath Active 10/13/2013 [facility] ABDMNAL PAIN GENERALIZED Active [facility] FEM GENITAL SYMPTOMS NOS Active [facility] Medications Medication Details Route Status Patient Instructions Ordering Provider Order Date Source Jentadueto 2.5-500 MG Oral Tablet (Active) Active [facility] Synthroid 50 MCG Oral Tablet (Active) Active [facility] Glimepiride 4 MG Oral Tablet (Active) Active [facility] Calcium 600+D TABS (Active) Active [facility] Iron TABS (Active) Active [facility] MagOx 400 TABS (Active) Active [facility] Multivitamins CAPS (Active) Active [facility] Donepezil HCl 10 MG Oral Tablet (Active) Active [facility] Ramipril 2.5 MG Oral Capsule (Active) Active [facility] Venlafaxine HCl ER 75 MG Oral Capsule Ex tended Release 24 Hour (Active) A ctive [facility] Crestor 5 MG Oral Tablet (Act abe) Active [facility] B-12 CAPS (Active) Active [facility] Allergies, Adverse Reactions, Alerts Substance Category Reaction Severity Reaction type Status Date Reported Comments Source Chem [place] Tramadol drug allergy Allergy Active [facility] Tolectin 600 drug allergy Allergy Active [facility] Tramadol drug allergy drug allergy Active [facility] Tolectin TABS drug allergy drug allergy Active [facility] Immunizations No Data Provided for This [...] ADM Date DC Date Status Source [facility] Outpatient [id number] ABD PAIN, PELVIS PAIN AISLINN AGUILAR 2011 2011 Active [facility] AUDIT [id number] 10/13/2013 10/13/2013 [facility] Procedures No Data Provided for This Section Assessment and Plan No Data Provided for This Section Plan of Care No Data Provided for This Section Social History Social History Date Source Never A Smoker (Active) Activ ities Of Daily Living (Active) Exercising Erratically (Active) 10/13/2013 [facility] Family History Value Date S ource Paternal history of Cancer (Activ e) Sororal history of Ovarian Cancer (V16.41); (Active) Sororal history of Lung Cancer (V16.1); (Active) Maternal grandmother's history of Heart Disease (V17.49); (Active) Sororal history of Hypertension (V17.49); (Active) 10/13/2013 [facility] Advance Directives Order Name Results Value Date Source Advance Directives Advance Dir ectives No Advance Directives available. 10/13/2013 [facility] Functional Status No Data Provided for This Section
--- OUTSIDE RECORDS SUMMARY | 2020-09-24 09:54 | XMS REPORT | Continuity of Care Document ---
Author Author [facility] Organization [facility] Address [facility] [place] [address] Phone Unavailable Care Team Providers Care Senior Games Technician Name Role Phone MD ANEL AGUILAR PCP John ABRAHAM Attphys Unavailable SWEET, A LAIRD Attphys Unavailable Sweet, A [place] Attphys SWEET, A LAIRD Attphys Unavailable Payers Payer Name Policy Type Policy Number Effective Date Expiration Date S alejandra Medicare A & B [id number] 2002 00:00:00 [facility] [id number] I [facility] MEDICAREMEDICARE A [id number] 2001-PresentMedicare [id number] 2002 00:00:00 [facility] Problems Condition Name Condition Details Condition Category Status Onset Date Resolution Date Last Treatment Date Treating Clinician Comments Source ABD PAIN, PELVIS PAIN ABD PAIN, PELVIS PAIN Active 08/13/2011 [facility] Active 2011-08-13 00:00:00 2011-09-04 10:48: 00 James Singh Urinary tract infection Problem Active [facility] Altered mental status Problem Active [facility] Renal insufficiency Problem Active [facility] Hypertension Problem Active [facility] 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/2013 [facility] Active 2013-10-13 [facility] Mellitus Diab etes Mellitus Active 10/13/2013 [facility] Active 2013-10-13 20:49:22 M kelly Francisco Hypertension Hype rtension Active 10/13/2013 [facility] Problem Active 2013-10-13 20:49:22 Daniel rosanne Francisco 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 [facility] Problem Active 2013-10-13 20:49:22 [facility] Shortness Of Breath Shor tness Of Breath Active 10/13/2013 [facility] Problem Active 2013-10-13 20:49:22 [facility] ABDMNAL PAIN GENERALIZED ABDM NAL PAIN GENERALIZED Active [facility] Active 2011-09-04 10:48:00 [facility] FEM GENITAL SYMPTOMS NOS FEM GENITAL SYMPTOMS NOS Active [facility] Active 2011-09-04 10:48:00 [facility] Allergies, Adverse Reactions, Alerts Allergy Name Allergy Type Status Severity Reaction(s) Onset Date Inacti ve Date Treating Clinician Comments Source Simvastatin Allergy to substance Active MUSCLE CRAMPIN G WORSENED 2020-09-09 00:00:00 [facility] Tramadol Allergy to substance Active ITCHING 2020-09-09 00:00:00 [facility] Tolmetin Allergy to substance Active "ATE LINING OF MY STOMACH" 2020-09-09 00:00:00 [facility] Chem Negley Tramadol Chem Negley Tramadol Active [facility] Tolectin 600 Tolectin 600 Active [facility] Tramadol Tramadol Active [facility] Tolectin TABS Tolectin TABS Active [facility] Family History Family Member Diagnosis Comments Start Date Stop Date Source Unknown Family Member Family History 2013-10-13 20:49:22 2 20:49:22 [facility] Social History Social Habit Start Date Stop Date Quantity Comments Source Sex Assigned At [facility] Social History 2013-10-13 20:49:22 2013-10-13 20:49:22 [facility] Medications Ordered Medication Name Filled Medication Name Start Date Stop Da te Current Medication? Ordering Clinician Indication Dosage Frequency Signature (SIG) Comments Components Source Cefuroxime Axetil (Cefuroxime) 250 Mg TABLET Cefuroxim e Axetil (Cefuroxime) 250 Mg TABLET 2020-09-11 10:02:00 Yes 500 Every 12 Hours [facility] Jentadueto 2.5-500 MG Oral Tablet 2013-10-13 20:49:22 Yes (Active) James Francisco Synthroid 50 MCG Oral Tablet 2013-10-13 20:49:22 Yes (Active) James Singh Glimepiride 4 MG Oral Tablet 2013-10-13 20:49:22 Yes (Active) James Francisco Calcium 600+D TABS 2013-10-13 20:49:22 Yes (Active) James Francisco Iron TABS 2013-10-13 20:49:22 Yes (Active) James Singh MagOx 400 TABS 2013-10-13 20:49:22 Yes (Act abe) James Singh Multivitamins CAPS 2013-10-13 20:49:22 Yes (Active) James Singh Donepezil HCl 10 MG Oral Tablet 2013-10-13 20:49:22 Yes (Active) James Singh Ramipril 2.5 MG Oral Capsule 2013-10-13 20:49:22 Yes (Active) James Singh Venlafaxine HCl ER 75 MG Oral Capsule Extended Release 24 Ho ur 2013-10-13 20:49:22 Yes (Active) Bryanna Singh Crestor 5 MG Oral Tablet 2013-10-13 20:49:22 Yes (Active) James Singh B-12 CAPS 2013-10-13 20:49:22 Yes (Active) James Singh Aspirin (Aspirin Chew) 81 Mg CHEW Aspirin (Aspirin Chew) 81 Mg CHEW Yes 81 Daily [facility] Calcium Carbonate/Vitamin D3 (Oyster Shell Calcium + D Tab) 1 Each TABLET Calcium Carbonate/Vitamin D3 (Oyster Shell Calcium + D Tab) 1 Each TABLET Yes 1 Daily [facility] Cyanocobalamin (Vitamin B-12) (Vitamin B-12) 1,000 Mcg TAB.SUBL Cyanocobalamin (Vitamin B-12) (Vitamin B-12) 1,000 Mcg TAB.SUBL Yes 5 000 Daily [facility] Donepezil Hcl Donepezil Hcl Yes 1 Bedtime [facility] Empagliflozin (Jardiance) 25 Mg TABLET Empagliflozin (Jardiance) 25 Mg TABLET Yes 1 Daily [facility] Glimepiride Glimepiride Yes 6 Daily [facility] Levothyroxine Sodium Levothyroxine Sodium Yes 50 Daily [facility] Linagliptin/Metformin Hcl (Jentadueto 2.5 Mg-1000 Mg T ab) 1 Each TABLET Linagliptin/Metformin Hcl (Jentadueto 2.5 Mg-1000 Mg Tab) 1 Each TABLET Yes 1 Twice A Day [facility] Magnesium Oxide Magnesium Oxide Yes 400 Daily [facility] Memantine Hcl (Namenda) 10 Mg TABLET Memantine Hcl (Namenda) 10 Mg TABLET Yes 10 Twice A Day [facility] Multivitamin (Multi-Vitamin Daily) 1 Each TABLET Multi vitamin (Multi-Vitamin Daily) 1 Each TABLET Yes 1 Daily [facility] Oxybutynin Chloride Oxybutynin Chloride Yes 10 Bedtime [facility] Ramipril Ramipril Yes 2.5 Bedtime [facility] Rosuvastatin Calcium (Crestor) 10 Mg TAB Rosuvastatin Calcium (Crestor) 10 Mg TAB Yes 5 Bedtime [facility] Ubidecarenone (Coq-10) 100 Mg CAPSULE Ubidecarenone (Coq-10) 100 Mg CAPSULE Yes 200 Daily [facility] Venlafaxine Hcl Venlafaxine Hcl Yes 75 Bedtime [facility] Vital Signs Vital Name Observation Time Observation Value Comments Source Body Temperature 2020-09-23 01:02:00 98.0 [degF] [facility] Heart Rate 2020-09-23 01:02:00 71 /min [facility] Respiratory rate 2020-09-23 01:02:00 16 /min [facility] BP Systolic 2020-09-23 01:02:00 169 mm[Hg] [facility] BP Diastolic 2020-09-23 01:02:00 64 mm[Hg] [facility] Oxygen saturation by Pulse oximetry 2020-09-23 01:02:00 97 /min [facility] Weight 2020-09-22 23:32:00 150 [lb_av] [facility] BMI (Body Mass Index) 2020-09-22 23:32:00 25.7 kg/m2 [facility] Body Temperature 2020-09-11 09:30:00 98.3 [degF] [facility] Heart Rate 2020-09-11 09:30:00 67 /min [facility] Respiratory rate 2020-09-11 09:30:00 18 /min [facility] BP Systolic 2020-09-11 09:30:00 152 mm[Hg] [facility] BP Diastolic 2020-09-11 09:30:00 69 mm[Hg] [facility] Oxygen saturation by Pulse oximetry 2020-09-11 09:30:00 97 /min [facility] BMI (Body Mass Index) 2020-09-09 20:00:00 25.7 kg/m2 [facility] Weight 2020-09-09 14:22:00 150 [lb_av] [facility] Procedures Procedure Date / Time Performed Performing Clinician Magali rajan Computed tomography of brain without radiopaque contrast 2020-09 00:00:00 [facility] SARS-COV2/RT-PCR ([facility]) 2020-09-09 16:05:00 Manuel Kohler Not In [facility] Computed tomography of brain without radiopaque contrast 2020-09 00:00:00 [facility] Plan of Care Planned Activity Planned Date Details Comments Source Instructions Hypertension [facility] Encounters Start Date/Time End Date/Time Encounter Type Admission Type Attendi [facility] Care Department Encounter ID Source 2020-09-22 23:50:00 2020-09-23 01:07:00 Departed Emergency Room 1 PATRICIA ABRAHAM [facility] [id number] I [facility] 2020-09-09 17:06:00 2020-09-11 12:00:00 Discharged Inpatient 1 VIOLETTE MONROY [facility] [id number] [facility] 2013-10-13 14:49:22 2013-10-13 14:49:22 Outpatient LUIS SMITH [id number] Results Test Description Test Time Test Comments Results Result Comments Source CT BRAIN WO 2020-09-23 00:50:00 [facility] 1935 Sex: [place] [address] Patient Name: HERBIE PINON MR #: [id number] : 1935 Age/Sex: 85/F Req #: [id number] Adm Physician: Ordered by: PATRICIA ABRAHAM MD Report #: [id number] Location: ER Room/Bed: Procedure: [id number] CT/CT BRAIN WO Exam Date: Exam Time: REPORT STATUS: Signed Examination: CT head without contrast Clinical Indication: N ELEVATED BP, HEADACHE Y. Technique: Transaxial noncontrast images from the skull base through the vertex were obtained. Sagittal and coronal reformatted images were done. Dose modulation, iterative reconstruction, and/or weight based adjustment of the mA/kV was utilized to reduce the radiation dose to as low as reasonably achievable. Comparison: 09/09/2020. Findings: Scalp: No abnormalities. Bones: Intact. No fractures. No blastic or lytic lesions. Brain sulci: Generalized volume loss for patient's age. Ventricles: No hydrocephalus. Extra-axial space: No abnormalities. Parenchyma: Again seen are patchy and confluent areas of low-attenuation within subcortical and periventricular white matter, nonspecific, but could represent microvascular ischemic disease. No masses, hemorrhage, or acute or chronic cortical based vascular insults. Suprasellar region: No abnormalities. Craniocervical junction: The foramen magnum is patent. No Chiari one malformation. Impression: 1. No acute intracranial finding. 2. Unchanged chronic microvascular ischemic change and generalized volume loss when compared to prior head CT dated 09/09/2020. Signed by: Dr. Johnny Hernandez M.D. on 09/23/2020 12:53 AM Dictated By: JOHNNY WEINSTEIN MD Transcribed By: SIVAN on 09/23/2052 COPY TO: PATRICIA ABRAHAM MD Capillary blood glucose measurement by glucometer (mas s/volume) 2020-09-11 07:44:00 Test Item Bedside Glucose (test code = 72578-5) 136 mg/dL 70-120 Meter ID: [id number] leukocytes automated count (number/volume)2020-09-11 06:40:00* Test Item Value Reference Range Interpretation Comments White Blood Count (test code = 6690-2) 8.17 10*3/uL 4.8-10.8 [facility] erythrocytes automated count (number/volume)2020-09-11 06:40:00* Test Item Value Reference Range Interpretation Comments Red Blood Count (test code = 789-8) 3.54 10*6/mL 3.6-5.1 [facility] hemoglobin measurement (moles/volume)2020-09-11 06:40:00* Test Item Value Reference Range Interpretation Comments Hemoglobin (test code = 02281-3) 11.4 g/dL 12.0-16.0 [facility]land[facility]ated blood hematocrit (volume fraction)2020-09-11 06:40:00* Test Item Value Reference Range Interpretation Comments Hematocrit (test code = 4544-3) 34.2 % 34.2-44.1 [facility]land[facility]ated erythrocyte mean corpuscular atfjkq5321-38-07 06:40:00* Test Item Value Reference Range Interpretation Comments Mean Corpuscular Volume (test code = 787-2) 96.6 81-99 [facility]land[facility] erythrocyte mean corpuscular hemoglobin (mass per erythrocyte)2020-09-11 06:40:00* Test Item Value Reference Range Interpretation Comments Mean Corpuscular Hemoglobin (test code = 785-6) 32.2 pg 28-32 [facility]land[facility] erythrocyte mean corpuscular hemoglobin concentration measurement (mass/volume)2020-09-11 06:40:00* Test Item Value Reference Range Interpretation Comments Mean Corpuscular Hemoglobin Concent (test code = 786-4) 33.3 g/dL 31-35 [facility]landRDW NyyMl-Rii0587-48-08 06:40:00* Test Item Value Reference Range Interpretation Comments Red Cell Distribution Width (test code = 31154-5) 12.0 % 11.7 -14.4 [facility]land[facility]ated blood platelet count (count/volume)2020-09-11 06:40:00* Test Item Value Reference Range Interpretation Comments Platelet Count (test code = 777-3) 202 10*3/uL 140-360 [facility]landAutomated blood segmented neutrophil count as percentage of total irswbfzxeo1683-19-56 06:40:00* Test Item Value Reference Range Interpretation Comments Neutrophils (%) (Auto) (test code = 38413-1) 76.5 % 38.7-80.0 [facility]land[facility]ated blood lymphocyte count as percentage ot total evirzksxul6295-76-95 06:40:00* Test Item Value Reference Range Interpretation Comments Lymphocytes (%) (Auto) (test code = 736-9) 12.6 % 18.0-39.1 [facility]land[facility] blood monocyte count as percentage of total oynbocwvxp0087-48-90 06:40:00* Test Item Value Reference Range Interpretation Comments Monocytes (%) (Auto) (test code = 5905-5) 9.8 % 4.4-11.3 [facility] blood eosinophil count as percentage of total auwvvdyipn1789-30-71 06:40:00* Test Item Value Reference Range Interpretation Comments Eosinophils (%) (Auto) (test code = 713-8) 0.4 % 0.0-6.0 [facility] blood basophil count as percentage of total gsmtwzhmtz1213-94-80 06:40:00* Test Item Value Reference Range Interpretation Comments Basophils (%) (Auto) (test code = 706-2) 0.5 % 0.0-1.0 [facility]landFluoroscopic procedure less than one hour eaheyyps3648-10-17 06:40:00* Test Item Value Reference Range Interpretation Comments IM GRANULOCYTES % (test code = IM GRANULOCYTES %) 0.2 % 0.0- 1.0 [facility]land[facility] blood neutrophil count 2020-09-11 06:40:00* Test Item Value Reference Range Interpretation Comments Neutrophils # (Auto) (test code = 751-8) 6.3 2.1-6.9 [facility] lymphocytes count (number/volume) 2020-09-11 06:40:00* Test Item Value Reference Range Interpretation Comments Lymphocytes # (Auto) (test code = 64696-3) 1.0 1.0-3.2 [facility] monocytes automated count (number/volume)2020-09-11 06:40:00* Test Item Value Reference Range Interpretation Comments Monocytes # (Auto) (test code = 742-7) 0.8 0.2-0.8 [facility] blood eosinophil count 2020-09-11 06:40:00* Test Item Value Reference Range Interpretation Comments Eosinophils # (Auto) (test code = 711-2) 0.0 0.0-0.4 [facility]land[facility]ated blood basophil count (count/volume)2020-09-11 06:40:00* Test Item Value Reference Range Interpretation Comments Basophils # (Auto) (test code = 704-7) 0.0 0.0-0.1 [facility]landFluoroscopic procedure less than one hour fychsdum0372-89-57 06:40:00* Test Item Value Reference Range Interpretation Comments Absolute Immature Granulocyte (auto (jason t code = Absolute Immature Granulocyte (auto) 0.02 10*3/uL 0-0.1 [facility] sodium [facility] (moles/volume)2020-09-11 06:40:00* Test Item Value Reference Range Interpretation Comments Sodium Level (test code = 2951-2) 137 mmol/L 136-145 [facility] potassium measurement (moles/volume)2020-09-11 06:40:00* Test Item Value Reference Range Interpretation Comments Potassium Level (test code = 2823-3) 3.6 mmol/L 3.5-5.1 [facility] chloride measurement (moles/volume)2020-09-11 06:40:00* Test Item Value Reference Range Interpretation Comments Chloride Level (test code = 2075-0) 106 mmol/L 98-107 [facility] plasma carbon dioxide, total measurement (moles/volume)2020-09-11 06:40:00* Test Item Value Reference Range Interpretation Comments Carbon Dioxide Level (test code = 2028-9) 21 mmol/L 22-29 [facility] or plasma anion kes8870-53-89 06:40:00* Test Item Value Reference Range Interpretation Comments Anion Gap (test code = 99805-6) 13.6 mmol/L 8-16 [facility] plasma urea nitrogen measurement (mass/volume)2020-09-11 06:40:00* Test Item Value Reference Range Interpretation Comments Blood Urea Nitrogen (test code = 3094-0) 17 mg/dL 7-26 [facility] plasma creatinine measurement (mass/volume)2020-09-11 06:40:00* Test Item Value Reference Range Interpretation Comments Creatinine (test code = 2160-0) 0.69 mg/dL 0.57-1.11 [facility] or plasma urea nitrogen/creatinine mass gvjoc5719-67-63 06:40:00* Test Item Value Reference Range Interpretation Comments BUN/Creatinine Ratio (test code = 3097-3) 25 6-25 [facility]landEstimated glomerular filtration rate (GFR) akcsbuvobdsxz4931-97-81 06:40:00* Test Item Value Reference Range Interpretation Comments Estimat Glomerular Filtration Rate (test code = 626858961) > 60 mL/ min >60 Ranges were taken from the National Kidney Disease Education Program and the [facility] Kidney Foundation literature.Reference ranges:60 or greater: Qiazaf04-09 ( for 3 consecutive months): Chronic kidney disease 15 or less: Kidney failureHCA Houston Healthcare PearlandGlucose hvniyrfeigw9369-22-88 06:40:00* Test Item Value Reference Range Interpretation Comments Glucose Level (test code = JJC1196) 137 mg/dL 74-118 [facility] plasma calcium measurement (mass/volume)2020-09-11 06:40:00* Test Item Value Reference Range Interpretation Comments Calcium Level (test code = 18162-8) 8.3 mg/dL 8.4-10.2 [facility]landBlood leukocytes automated count (number/volume)2020-09-11 06:40:00* Test Item Value Reference Range Interpretation Comments White Blood Count (test code = 6690-2) 8.17 10*3/uL 4.8-10.8 [facility]landBlood erythrocytes automated count (number/volume)2020-09-11 06:40:00* Test Item Value Reference Range Interpretation Comments Red Blood Count (test code = 789-8) 3.54 10*6/mL 3.6-5.1 [facility]landBlood hemoglobin measurement (moles/volume)2020-09-11 06:40:00* Test Item Value Reference Range Interpretation Comments Hemoglobin (test code = 61258-4) 11.4 g/dL 12.0-16.0 [facility]landAutomated blood hematocrit (volume fraction)2020-09-11 06:40:00* Test Item Value Reference Range Interpretation Comments Hematocrit (test code = 4544-3) 34.2 % 34.2-44.1 [facility]landAutomated erythrocyte mean corpuscular plebha0055-93-36 06:40:00* Test Item Value Reference Range Interpretation Comments Mean Corpuscular Volume (test code = 787-2) 96.6 81-99 [facility]landAutomated erythrocyte mean corpuscular hemoglobin (mass per erythrocyte)2020-09-11 06:40:00* Test Item Value Reference Range Interpretation Comments Mean Corpuscular Hemoglobin (test code = 785-6) 32.2 pg 28-32 [facility]landAutomated erythrocyte mean corpuscular hemoglobin concentration measurement (mass/volume)2020-09-11 06:40:00* Test Item Value Reference Range Interpretation Comments Mean Corpuscular Hemoglobin Concent (test code = 786-4) 33.3 g/dL 31-35 [facility] PearlandRDW GvoQz-Hzt3688-82-08 06:40:00* Test Item Value Reference Range Interpretation Comments Red Cell Distribution Width (test code = 75494-6) 12.0 % 11.7 -14.4 [facility]landAutomated blood platelet count (count/volume)2020-09-11 06:40:00* Test Item Value Reference Range Interpretation Comments Platelet Count (test code = 777-3) 202 10*3/uL 140-360 [facility]landAutomated blood segmented neutrophil count as percentage of total mnuhpdygzj7916-51-94 06:40:00* Test Item Value Reference Range Interpretation Comments Neutrophils (%) (Auto) (test code = 59054-8) 76.5 % 38.7-80.0 [facility]landAutomated blood lymphocyte count as percentage ot total zzoxvvhhaf3093-57-26 06:40:00* Test Item Value Reference Range Interpretation Comments Lymphocytes (%) (Auto) (test code = 736-9) 12.6 % 18.0-39.1 [facility]landAutomated blood monocyte count as percentage of total qpluaduhmc3961-80-37 06:40:00* Test Item Value Reference Range Interpretation Comments Monocytes (%) (Auto) (test code = 5905-5) 9.8 % 4.4-11.3 [facility]landAutomated blood eosinophil count as percentage of total pcmojpprmd6412-75-44 06:40:00* Test Item Value Reference Range Interpretation Comments Eosinophils (%) (Auto) (test code = 713-8) 0.4 % 0.0-6.0 [facility]landAutomated blood basophil count as percentage of total cysylfbxbo5018-73-01 06:40:00* Test Item Value Reference Range Interpretation Comments Basophils (%) (Auto) (test code = 706-2) 0.5 % 0.0-1.0 [facility]landFluoroscopic procedure less than one hour cibippyt7070-21-37 06:40:00* Test Item Value Reference Range Interpretation Comments IM GRANULOCYTES % (test code = IM GRANULOCYTES %) 0.2 % 0.0- 1.0 [facility]landAutom[facility] blood neutrophil count 2020-09-11 06:40:00* Test Item Value Reference Range Interpretation Comments Neutrophils # (Auto) (test code = 751-8) 6.3 2.1-6.9 [facility]land[facility] lymphocytes count (number/volume) 2020-09-11 06:40:00* Test Item Value Reference Range Interpretation Comments Lymphocytes # (Auto) (test code = 89203-8) 1.0 1.0-3.2 [facility]landBlood monocytes automated count (number/volume)2020-09-11 06:40:00* Test Item Value Reference Range Interpretation Comments Monocytes # (Auto) (test code = 742-7) 0.8 0.2-0.8 [facility]landAutom[facility] blood eosinophil count 2020-09-11 06:40:00* Test Item Value Reference Range Interpretation Comments Eosinophils # (Auto) (test code = 711-2) 0.0 0.0-0.4 [facility]landAutomated blood basophil count (count/volume)2020-09-11 06:40:00* Test Item Value Reference Range Interpretation Comments Basophils # (Auto) (test code = 704-7) 0.0 0.0-0.1 [facility]landFluoroscopic procedure less than one hour ctvwgufa3349-82-81 06:40:00* Test Item Value Reference Range Interpretation Comments Absolute Immature Granulocyte (auto (jason t code = Absolute Immature Granulocyte (auto) 0.02 10*3/uL 0-0.1 [facility] sodium measurement (moles/volume)2020-09-11 06:40:00* Test Item Value Reference Range Interpretation Comments Sodium Level (test code = 2951-2) 137 mmol/L 136-145 [facility] plasma potassium measurement (moles/volume)2020-09-11 06:40:00* Test Item Value Reference Range Interpretation Comments Potassium Level (test code = 2823-3) 3.6 mmol/L 3.5-5.1 [facility] plasma chloride measurement (moles/volume)2020-09-11 06:40:00* Test Item Value Reference Range Interpretation Comments Chloride Level (test code = 2075-0) 106 mmol/L 98-107 [facility] plasma carbon dioxide, total measurement (moles/volume)2020-09-11 06:40:00* Test Item Value Reference Range Interpretation Comments Carbon Dioxide Level (test code = 2028-9) 21 mmol/L 22-29 [facility] plasma anion sqx7031-57-10 06:40:00* Test Item Value Reference Range Interpretation Comments Anion Gap (test code = 95759-9) 13.6 mmol/L 8-16 [facility] [facility] plasma urea nitrogen measurement (mass/volume)2020-09-11 06:40:00* Test Item Value Reference Range Interpretation Comments Blood Urea Nitrogen (test code = 3094-0) 17 mg/dL 7-26 [facility] plasma creatinine measurement (mass/volume)2020-09-11 06:40:00* Test Item Value Reference Range Interpretation Comments Creatinine (test code = 2160-0) 0.69 mg/dL 0.57-1.11 [facility] plasma urea nitrogen/creatinine mass gkzrv3456-47-15 06:40:00* Test Item Value Reference Range Interpretation Comments BUN/Creatinine Ratio (test code = 3097-3) 25 6-25 [facility] PearlandEstimated glomerular filtration rate (GFR) uaahcfgorwgww8511-15-61 06:40:00* Test Item Value Reference Range Interpretation Comments Estimat Glomerular Filtration Rate (test code = 554884497) > 60 mL/ min >60 Ranges were taken from the National Kidney Disease Education Program and the [facility] literature.Reference ranges:60 or greater: Jauqpu84-11 ( for 3 consecutive months): Chronic kidney disease 15 or less: Kidney failureHCA [facility] Healthcare PearlandGlucose dmenehtcfql7996-14-98 06:40:00* Test Item Value Reference Range Interpretation Comments Glucose Level (test code = XAR3767) 137 mg/dL 74-118 [facility] plasma calcium measurement (mass/volume)2020-09-11 06:40:00* Test Item Value Reference Range Interpretation Comments Calcium Level (test code = 75012-8) 8.3 mg/dL 8.4-10.2 [facility] PearlandCapillary blood glucose measurement by glucometer (mass/volume)2020-09-10 19:51:00* Test Item Value Reference Range Interpretation Comments Bedside Glucose (test code = 58783-1) 169 mg/dL 70-120 Meter ID: [id number] [facility] AreaARS-CoV2/RT-PCR ([facility])2020-09-10 14:48:00* Test Item Value Reference Range Interpretation Comments SARS-COV2/RT-PCR (test code = 64378-6) Negative N ot Detected, Negative, See external report for linked test SARS-COV-2 PERFORMING LAB (test code = 09523-6) [facility] HANY (test code = HANY) Negative result for this jason t determines that SARS-CoV-2 RNA was not present in the specimen above the Limit of Detection (LOD). However, Negative results do not preclude SARS-CoV-2 infection and should not be used as the sole basis for treatment or patient management decisions. Negative results must be combined with clinical observations, patient history, and epidemiological information. A false negative result may occur if a specimen is improperly collected, transported or handled. A false negative result should be considered if patient's recent exposures or clinical presentation indicate that COVID-19 (SARS-CoV-2) is likely and diagnostic tests for other causes of illness are negative. Re-testing should be considered in cases of suspected false negatives. The limit of detection for this assay is 100 copies/mL. This SARS CoV-2 test is a real-time RT-PCR test intended for the qualitative detection of nucleic acid from SARS-CoV-2 in a nasopharyngeal swab specimen collected from individuals suspected of COVID-19 by their healthcare provider. This test has not been Food and Drug Administration (FDA) cleared or approved. This is a modified version of an approved Emergency Use Authorization (EUA) and is in the process of review by the FDA. Once authorized by the FDA, the issued EUA will be effective until the declaration that circumstances exist justifying the authorization of the emergency use of in vitro diagnostic tests for detection and/or diagnosis of COVID-19 is terminated under Section 564(b)(2) of the Act or the EUA is revoked under Section 564(g) of the Act. Testing was performed using the Enc[employer] SARS-CoV-2 assay. Fact Sheet for Healthcare Providers:https://www.Happigo.com.[employer]/carole/VJ_FTII-HhM-4_NKP_Htnq_Fnxpm_56-18884 4.pdf Fact Sheet for Healthcare Patients:https://www.RABT.[employer]/carole/TK_FCHD-ExI-9_Ylcojyk_Bsdc_Vzjss_QA_11-806142J6.pdf Performing Laboratory:[facility], [place] [address] [place], [place] [address]ARS-COV2/RT-PCR ([facility])2020-09-10 14:48:00* Test Item Value Reference Range Interpretation Comments SARS-COV2/RT-PCR (test code = 8813943) Negative N ot Detected, Negative, See external report for linked test SARS-COV-2 PERFORMING LAB (test code = 9163932) [facility] Negative result for this test determines that SARS-CoV-2 RNA was not present in the specimen above the Limit of Detection (LOD). However, Negative results do n ot preclude SARS-CoV-2 infection and should not be used as the sole basis for tr eatment or patient management decisions. Negative results must be combined with clinical observations, patient history, and epidemiological information. A false negative result may occur if a specimen is improperly collected, transported or handled. A false negative result should be considered if patient's recent expo sures or clinical presentation indicate that COVID-19 (SARS-CoV-2) is likely and diagnostic tests for other causes of illness are negative. Re-testing should b e considered in cases of suspected false negatives.The limit of detection for th is assay is 100 copies/mL.This SARS CoV-2 test is a real-time RT-PCR test intend ed for the qualitative detection of nucleic acid from SARS-CoV-2 in a nasopharyn geal swab specimen collected from individuals suspected of COVID-19 by their [facility] provider.This test has not been Food and Drug Administration (FDA) clear ed or approved. This is a modified version of an approved Emergency Use Authori zation (EUA) and is in the process of review by the FDA. Once authorized by [facility] FDA, the issued EUA will be effective until the declaration that circumstances exist justifying the authorization of the emergency use of in vitro diagnostic tests for detection and/or diagnosis of COVID-19 is terminated under Section 564 (b)(2) of the Act or the EUA is revoked under Section 564(g) of the Act.Testing was performed using the Enc[employer] SARS-CoV-2 assay.Fact Sheet for Healthcare Provid ers:https://www.molecular.enciso/carole/YO_ETHM-LvB-6_BCU_Nfsp_Meove_77-336121.pdfF act Sheet for Healthcare Patients:https://www.molecular.enciso/carole/PN_UCZY-FcV-0 _Patient_Fact_Sheet_EN_51-846129I5.pdfPerforming Laboratory:[place] [address] [place], [place] [address]Rtzpl or plasma creatine kinase measurement (enzymatic activity/volume)2020-09-10 14:33:00* Test Item Value Reference Range Interpretation Comments Creatine Kinase (test code = 2157-6) 57 [IU]/L 29-168 [facility] plasma creatine kinase MB measurement (mass/volume)2020-09-10 14:33:00* Test Item Value Reference Range Interpretation Comments Creatine Kinase MB (test code = 10994-8) 0.70 ng/mL 0-5.0 [facility] PearlandTroponin I measurement by highly sensitive enzyme igdfbwrwyiy3900-41-57 14:33:00* Test Item Value Reference Range Interpretation Comments Troponin I (test code = 55282-7) < 0.001 ng/mL 0-0.300 [facility] or plasma creatine kinase measurement (enzymatic activity/volume)2020-09-10 14:33:00* Test Item Value Reference Range Interpretation Comments Creatine Kinase (test code = 2157-6) 57 [IU]/L 29-168 [facility] or plasma creatine kinase MB measurement (mass/volume)2020-09-10 14:33:00* Test Item Value Reference Range Interpretation Comments Creatine Kinase MB (test code = 33603-5) 0.70 ng/mL 0-5.0 [facility] PearlandTroponin I measurement by highly sensitive enzyme odisvbmqzzq7652-46-66 14:33:00* Test Item Value Reference Range Interpretation Comments Troponin I (test code = 22356-1) < 0.001 ng/mL 0-0.300 [facility] or plasma total bilirubin measurement (mass/volume)2020-09-10 05:50:00* Test Item Value Reference Range Interpretation Comments Total Bilirubin (test code = 1975-2) 0.3 mg/dL 0.2-1.2 [facility] PearlandFluoroscopic procedure less than one hour qczskteh2357-86-18 05:50:00* Test Item Value Reference Range Interpretation Comments Aspartate Amino Transf (AST/SGOT) (test code = Aspartate Amino Transf (AST/SGOT)) 20 [IU]/L 5-34 [facility] or plasma alanine aminotransferase measurement (enzymatic activity/volume)2020-09-10 05:50:00* Test Item Value Reference Range Interpretation Comments Alanine Aminotransferase (ALT/SGPT) (test code = 1742-6) 22 [IU]/L 0-55 [facility] PearlandAmmonia Vxu-aNil7769-27-07 05:50:00* Test Item Value Reference Range Interpretation Comments Ammonia (test code = 18290-2) 53 ug/dL 31-123 [facility] or plasma protein measurement (mass/volume)2020-09-10 05:50:00* Test Item Value Reference Range Interpretation Comments Total Protein (test code = 2885-2) 6.2 g/dL 6.5-8.1 [facility] or plasma albumin measurement (mass/volume)2020-09-10 05:50:00* Test Item Value Reference Range Interpretation Comments Albumin (test code = 1751-7) 3.0 g/dL 3.5-5.0 [facility] PearlandPlasma globulin measurement (mass/volume) 2020-09-10 05:50:00* Test Item Value Reference Range Interpretation Comments Globulin (test code = 03608-5) 3.2 g/dL 2.3-3.5 [facility] or plasma albumin/globulin mass cikrn3923-97-72 05:50:00* Test Item Value Reference Range Interpretation Comments Albumin/Globulin Ratio (test code = 1759-0) 0.9 0.8-2.0 [facility] plasma alkaline phosphatase measurement (enzymatic activity/volume)2020-09-10 05:50:00* Test Item Value Reference Range Interpretation Comments Alkaline Phosphatase (test code = 6768-6) 56 [IU]/L 40-150 [facility] or plasma lipase measurement (enzymatic activity/volume)2020-09-10 05:50:00* Test Item Value Reference Range Interpretation Comments Lipase (test code = 3040-3) 33 U/L 8-78 [facility] or plasma total bilirubin measurement (mass/volume)2020-09-10 05:50:00* Test Item Value Reference Range Interpretation Comments Total Bilirubin (test code = 1975-2) 0.3 mg/dL 0.2-1.2 [facility] PearlandFluoroscopic procedure less than one hour fewhhkxn7053-41-11 05:50:00* Test Item Value Reference Range Interpretation Comments Aspartate Amino Transf (AST/SGOT) (test code = Aspartate Amino Transf (AST/SGOT)) 20 [IU]/L 5-34 [facility] plasma alanine aminotransferase measurement (enzymatic activity/volume)2020-09-10 05:50:00* Test Item Value Reference Range Interpretation Comments Alanine Aminotransferase (ALT/SGPT) (test code = 1742-6) 22 [IU]/L 0-55 [facility] PearlandAmmonia Sge-mUae7481-81-07 05:50:00* Test Item Value Reference Range Interpretation Comments Ammonia (test code = 49524-5) 53 ug/dL 31-123 [facility] plasma protein measurement (mass/volume)2020-09-10 05:50:00* Test Item Value Reference Range Interpretation Comments Total Protein (test code = 2885-2) 6.2 g/dL 6.5-8.1 [facility] plasma albumin measurement (mass/volume)2020-09-10 05:50:00* Test Item Value Reference Range Interpretation Comments Albumin (test code = 1751-7) 3.0 g/dL 3.5-5.0 [facility] PearlandPlasma globulin measurement (mass/volume) 2020-09-10 05:50:00* Test Item Value Reference Range Interpretation Comments Globulin (test code = 13511-7) 3.2 g/dL 2.3-3.5 [facility] or plasma albumin/globulin mass xwebx4065-47-17 05:50:00* Test Item Value Reference Range Interpretation Comments Albumin/Globulin Ratio (test code = 1759-0) 0.9 0.8-2.0 [facility] plasma alkaline phosphatase measurement (enzymatic activity/volume)2020-09-10 05:50:00* Test Item Value Reference Range Interpretation Comments Alkaline Phosphatase (test code = 6768-6) 56 [IU]/L 40-150 [facility] or plasma lipase measurement (enzymatic activity/volume)2020-09-10 05:50:00* Test Item Value Reference Range Interpretation Comments Lipase (test code = 3040-3) 33 U/L 8-78 [facility] PearlandUrine color dsvghpzhctszt5901-82-73 16:40:00* Test Item Value Reference Range Interpretation Comments Urine Color (test code = 5778-6) YELLOW YELLOW [facility] PearlandUrine gjsdulu9378-94-11 16:40:00* Test Item Value Reference Range Interpretation Comments Urine Clarity (test code = 65295-2) SL CLOUDY CLEAR [facility] Areapecific gravity of Urine by Test strip 2020-09-09 16:40:00* Test Item Value Reference Range Interpretation Comments Urine Specific Hoople (test code = 5811-5) 1.010 1.010-1.02 5 [facility]landUrine pH measurement by automated test lnaxq1739-20-15 16:40:00* Test Item Value Reference Range Interpretation Comments Urine pH (test code = 48810-2) 5.5 5-7 [facility]landUrine leukocyte esterase detection by lxblxahz5747-61-44 16:40:00* Test Item Value Reference Range Interpretation Comments Urine Leukocyte Esterase (test code = 5799-2) NEGATIVE NEGATIVE [facility]landUrine nitrite bejpexotw4692-59-35 16:40:00* Test Item Value Reference Range Interpretation Comments Urine Nitrite (test code = 16825-3) POSITIVE NEGATIVE [facility]landUrine protein measurement by test strip (mass/volume)2020-09-09 16:40:00* Test Item Value Reference Range Interpretation Comments Urine Protein (test code = 5804-0) NEGATIVE NEGATIVE [facility]landUrine glucose glisqknoc8867-08-20 16:40:00* Test Item Value Reference Range Interpretation Comments Urine Glucose (UA) (test code = 2349-9) 500 NEGATIVE [facility] PearlandUrine ketones detection by automated test luofy3443-56-27 16:40:00* Test Item Value Reference Range Interpretation Comments Urine Ketones (test code = 52601-3) NEGATIVE NEGATIVE [facility]landUrine urobilinogen measurement by test strip (mass/volume)2020-09-09 16:40:00* Test Item Value Reference Range Interpretation Comments Urine Urobilinogen (test code = 89113-9) 0.2 mg/dL 0.2-1 [facility]landUrine total bilirubin measurement (mass/volume)2020-09-09 16:40:00* Test Item Value Reference Range Interpretation Comments Urine Bilirubin (test code = 1978-6) NEGATIVE NEGATIVE [facility]landUrine erythrocytes yazcpglen5134-63-75 16:40:00* Test Item Value Reference Range Interpretation Comments Urine Blood (test code = 66369-0) TRACE NEGATIVE [facility] PearlandAutomated urine sediment leukocyte count by microscopy (number/high power field)2020-09-09 16:40:00* Test Item Value Reference Range Interpretation Comments Urine WBC (test code = 5821-4) 6-10 /[HPF] 0-5 [facility]landErythrocytes detection in urine sediment by light jjmpxrhbzp8954-38-53 16:40:00* Test Item Value Reference Range Interpretation Comments Urine RBC (test code = 72603-5) 0-5 /[HPF] 0-5 [facility]landBacteria detection in urine sediment by light zjuvzurgls4957-09-68 16:40:00* Test Item Value Reference Range Interpretation Comments Urine Bacteria (test code = 29986-3) MANY /[HPF] NONE [facility] PearlandEpithelial cells detection in urine sediment by light fatdhmmmqt9469-36-01 16:40:00* Test Item Value Reference Range Interpretation Comments Urine Epithelial Cells (test code = 99135-5) NONE /[LPF] NONE [facility] PearlandBacterial urine bqgmrdm9732-06-30 16:40:00* Test Item Value Reference Range Interpretation Comments Urine Culture (test code = 630-4) ESCHERICHIA COLI [facility] PearlandUrine color iouksprfmqpzg7000-65-97 16:40:00* Test Item Value Reference Range Interpretation Comments Urine Color (test code = 5778-6) YELLOW YELLOW [facility] PearlandUrine fkbifai6134-82-13 16:40:00* Test Item Value Reference Range Interpretation Comments Urine Clarity (test code = 49962-0) SL CLOUDY CLEAR [facility] Areapecific gravity of Urine by Test strip 2020-09-09 16:40:00* Test Item Value Reference Range Interpretation Comments Urine Specific Hoople (test code = 5811-5) 1.010 1.010-1.02 5 [facility]landUrine pH measurement by automated test lgawq7620-85-11 16:40:00* Test Item Value Reference Range Interpretation Comments Urine pH (test code = 44572-3) 5.5 5-7 [facility]landUrine leukocyte esterase detection by sinwfaih0014-31-26 16:40:00* Test Item Value Reference Range Interpretation Comments Urine Leukocyte Esterase (test code = 5799-2) NEGATIVE NEGATIVE [facility] PearlandUrine nitrite hswldothg4677-52-57 16:40:00* Test Item Value Reference Range Interpretation Comments Urine Nitrite (test code = 29218-9) POSITIVE NEGATIVE [facility]landUrine protein measurement by test strip (mass/volume)2020-09-09 16:40:00* Test Item Value Reference Range Interpretation Comments Urine Protein (test code = 5804-0) NEGATIVE NEGATIVE [facility]landUrine glucose dotxnyqxn2656-73-06 16:40:00* Test Item Value Reference Range Interpretation Comments Urine Glucose (UA) (test code = 2349-9) 500 NEGATIVE [facility] PearlandUrine ketones detection by automated test fgneq2741-43-97 16:40:00* Test Item Value Reference Range Interpretation Comments Urine Ketones (test code = 45610-6) NEGATIVE NEGATIVE [facility]landUrine urobilinogen measurement by test strip (mass/volume)2020-09-09 16:40:00* Test Item Value Reference Range Interpretation Comments Urine Urobilinogen (test code = 36194-7) 0.2 mg/dL 0.2-1 [facility]landUrine total bilirubin measurement (mass/volume)2020-09-09 16:40:00* Test Item Value Reference Range Interpretation Comments Urine Bilirubin (test code = 1978-6) NEGATIVE NEGATIVE [facility]landUrine erythrocytes kzlvxqkip7183-71-45 16:40:00* Test Item Value Reference Range Interpretation Comments Urine Blood (test code = 88379-0) TRACE NEGATIVE [facility] PearlandAutomated urine sediment leukocyte count by microscopy (number/high power field)2020-09-09 16:40:00* Test Item Value Reference Range Interpretation Comments Urine WBC (test code = 5821-4) 6-10 /[HPF] 0-5 [facility]landErythrocytes detection in urine sediment by light xhzdcodgxz8669-72-02 16:40:00* Test Item Value Reference Range Interpretation Comments Urine RBC (test code = 39484-1) 0-5 /[HPF] 0-5 [facility] PearlandBacteria detection in urine sediment by light npusmfrtpu7501-62-55 16:40:00* Test Item Value Reference Range Interpretation Comments Urine Bacteria (test code = 10615-8) MANY /[HPF] NONE [facility] PearlandEpithelial cells detection in urine sediment by light ziuaphhplv5043-35-57 16:40:00* Test Item Value Reference Range Interpretation Comments Urine Epithelial Cells (test code = 81068-9) NONE /[LPF] NONE [facility] PearlandBacterial urine ittmmjc1349-25-25 16:40:00* Test Item Value Reference Range Interpretation Comments Urine Culture (test code = 630-4) ESCHERICHIA COLI [facility]landBlood vhmpfjl2395-14-23 16:05:00* Test Item Value Reference Range Interpretation Comments Blood Culture (test code = 72151341) NO GROWTH AFTER 24 HOURS [facility] PearlandBacterial blood exfoeiu2743-93-45 16:05:00* Test Item Value Reference Range Interpretation Comments Blood Culture (test code = 600-7) GRAM NEGATIVE BACILLUS [facility] PearlandFluoroscopic procedure less than one hour zctnungg6631-52-98 16:05:00* Test Item Value Reference Range Interpretation Comments Coronavirus (PCR) (test code = Coronavirus (PCR)) NOT DETECTED NOTD ETECTED SARS-COV2/RT-PCRNegative results do not preclude SARS-CoV-2 infection and should not be used as the sole basis for patient management decisions. Negative result s must be combined with clinical observations, patient history, and epidemiologi caryl information. A false negative result may occur if a specimen is improperly c ollected, transported or handled.The limit of detection for this assay is 250 co pies/mLThe SARS-CoV-2 test is a rapid, real-time RT-PCR test intended for the qu alitative detection of nucleic acid from SARS-CoV-2 in nasopharyngeal swab speci men collected from individuals suspected of COVID-19 by their healthcare provide r. This test has not been Food and Drug Administration (FDA) cleared or approved and has been authorized by FDA under an Emergency Use Authorization (EUA). This EUA will be effective until the declaration that circumstances exist justifying the authorization of the emergency use of in vitro diagnostic test for detectio n and or diagnosis of COVID-19 is terminated under section 564(b) of the Act, or the the EUA is revoked under 564(g) of the ACT.Testing performed by [address] [place], [place] [address]Blood lexbzvc7195-89-33 16:05:00* Test Item Value Reference Range Interpretation Comments Blood Culture (test code = 88541492) NO GROWTH AFTER 5 DAYS, FINAL REPORT [facility]landBacterial blood kauidrh4017-68-46 16:05:00* Test Item Value Reference Range Interpretation Comments Blood Culture (test code = 600-7) ESCHERICHIA COLI [facility] PearlandCHES SINGLE (PORTABLE)2020-09-09 15:53:00[facility] : 1935 Sex: F [facility] [place] [address] Patient Name: HERBIE PINON MR #: [id number] : 1935 Age/Sex: 85/F Req #: [id number] Adm Physician: Ordered by: VIOLETTE MONROY MD Report #: [id number] Location: ER Room/Bed: Procedure: [id number] DX/CHEST SINGLE (PORTABLE) Exam Date: 09/09/20 Exam Time: 1529 REPORT STATUS: Signed EXAMINATION: CHEST SINGLE (PORT ABLE) INDICATION: Fever, altered mental status COMPARISON: None FINDINGS: LINES/TUBES:Baclofen pump. LUNGS:The lungs are well- inflated. No focal consolidation or pulmonary edema. PLEURA:No pleural effu kalli or pneumothorax. MEDIASTINUM:The cardiomediastinal silhouette appears normal in size and shape. BONES/SOFT TISSUES:No acute osseous injury. Left axillary surgical clips. ABDOMEN:No free air under the diaphragm. Right upp er quadrant cholecystectomy clips. IMPRESSION: No focal pneumonia o r pulmonary edema. Signed by: Jerica Lira MD on 09/09/2020 3:54 PM Di ctated By: JERICA LIRA MD 15 54 Transcribed By: SIVAN on 09/09/20 6736 COPY TO: VIOLETTE MONROY MD CT BRAIN [id number] 15:53:00 [facility]: [facility] : 1935 Sex: F* [facility] [address] [facility] [place] [address] Patient Name: HERBIE PINON MR #: [id number] : 1935 Age/Sex: 85/F Req #: [id number] Adm Physician: Ordered by: VIOLETTE MONROY MD Report #: [id number] Location: ER Room/Bed: Procedure: [id number] CT/CT BRAIN WO Exam Date: Exam Time: 1529 REPORT STATUS: Signed CT BRAIN WO HISTORY: Altered mental sta tus COMPARISON: Report from head CT dated 02/23/2016 Technique: Non contrast axial scans were obtained from skull base to the vertex. Coronal and sagittal reconstructions obtained from the axial data. One or more of the [facility] dose reduction techniques were used: Automated exposure control, adjus tment of the mA and/or kV according to patient size, and/or utilization of ite rative reconstruction technique. DISCUSSION: Scalp/Skull: Unremarkable . Brain sulci: Mildly prominent. Ventricles: Compensatory dilatation. Extr a-axial spaces: No masses or fluid collections. Carotid and vertebral artery c alcifications are present. Parenchyma: Moderate bilateral deep white mat ter hypodensity is likely chronic microvascular ischemic change. Otherwise, no masses, hemorrhage, or large vascular territory acute infarct. Dural si nuses: No abnormal densities. Sellar/Suprasellar region: Intact. Skull base : Intact. Incidental findings: Bilateral ocular lens replacement. IMPRESS ION: 1. No acute intracranial abnormalities. 2. Moderate supratentorial ch ronic microvascular ischemic change. Mild generalized cerebral volume loss. Signed by: Dr. Farhan Croft M.D. on 09/09/2020 3:56 PM Dictated B y: FARHAN CROFT MD [id number] COPY TO: VIOLETTE MONROY MD Prothrombin time (PT) in platelet poor plasma by coagulation assay 2020-09-09 14:35:00* Test Item Value Reference Range Interpretation Comments Prothrombin Time (test code = 5902-2) 13.6 s 11.9-14.5 [facility] Plate[facility] Coagulation [id number] 14:35:00* Test Item Value Reference Range Interpretation Comments Prothromb Time International Ratio (test code = 6301-6) 0.99 Oral Anticoagulant Therapy INR Values:1. Low Intensity Therapy 1.5 - 2.02 . Moderate Intensity Therapy 2.0 - 3.03. High Intensity Therapy(1) 2.5 - 3. 54. High Intensity Therapy(2) 3.0 - 4.05. Panic Value INR > 5.0 [facility] partial thromboplastin time (aPTT) in platelet poor plasma by coagulation [id number] 14:35:00* Test Item Value Reference Range Interpretation Comments Activated Partial Thromboplast Time (test code = 75533-2) 29.3 s 23.8-35.5 [facility] (mass/volume)2020-09-09 14:35:00* Test Item Value Reference Range Interpretation Comments Magnesium Level (test code = 12799-5) 2.1 mg/dL 1.3-2.1 [facility] [id number] 14:35:00* Test Item Value Reference Range Interpretation Comments B-Type Natriuretic Peptide (test code = 89683-8) < 10.0 pg/mL 0-100 [facility] (PT) in platelet poor plasma by coagulation [id number] 14:35:00* Test Item Value Reference Range Interpretation Comments Prothrombin Time (test code = 5902-2) 13.6 s 11.9-14.5 [facility] Platelet poor plasma by Coagulation [id number] 14:35:00* Test Item Value Reference Range Interpretation Comments Prothromb Time International Ratio (test code = 6301-6) 0.99 Oral Anticoagulant Therapy INR Values:1. Low Intensity Therapy 1.5 - 2.02 . Moderate Intensity Therapy 2.0 - 3.03. High Intensity Therapy(1) 2.5 - 3. 54. High Intensity Therapy(2) 3.0 - 4.05. Panic Value INR > 5.0 [facility] partial thromboplastin time (aPTT) in platelet poor plasma by coagulation [id number] 14:35:00* Test Item Value Reference Range Interpretation Comments Activated Partial Thromboplast Time (test code = 58405-9) 29.3 s 23.8-35.5 [facility] magnesium [facility] (mass/volume)2020-09-09 14:35:00* Test Item Value Reference Range Interpretation Comments Magnesium Level (test code = 53448-7) 2.1 mg/dL 1.3-2.1 [facility] [id number] 14:35:00* Test Item Value Reference Range Interpretation Comments B-Type Natriuretic Peptide (test code = 75195-8) < 10.0 pg/mL 0-100 [facility]
== END 2020-09-23 01:07 | disposition home or self-care (01) ==
LOC: ER 23:50
DX: I10 Essential (primary) hypertension (principal); F03.90 Unspecified dementia, unspecified severity, without behavioral disturbance, psychotic disturbance, mood disturbance, and anxiety; E11.40 Type 2 diabetes mellitus with diabetic neuropathy, unspecified; E78.5 Hyperlipidemia, unspecified; Z85.3 Personal history of malignant neoplasm of breast
CPT/HCPCS: 70450; 99283

== ENCOUNTER 2021-11-19 00:19 | Emergency (ER) | payer MEDICARE, BC ==
[~2021-11-19] VITALS: Ht 162.6 cm; Wt 68.0 kg
[2021-11-19 00:43] LABS: BASOPHILS % 0.4 % (0.0-1.0); EOSINOPHILS % 0.3 % (0.0-6.0); HEMATOCRIT 38.3 % (34.2-44.1); HEMOGLOBIN 12.1 g/dL (12.0-16.0); LYMPHOCYTES % 14.6 % (18.0-39.1); MEAN CORPUSCULAR HEMOGLOBIN 31.1 pg (28-32); MEAN CORPUSCULAR HGB CONC 31.6 g/dL (31-35); MEAN CORPUSCULAR VOLUME 98.5 fL (81-99); MONOCYTES # (AUTO) 0.5 (0.2-0.8); MONOCYTES % 7.2 % (4.4-11.3); NEUTROPHILS # (AUTO) 5.2 (2.1-6.9); NEUTROPHILS % 77.4 % (38.7-80.0); PLATELET COUNT 196 x10e3/uL (140-360); RED BLOOD COUNT 3.89 x10e6/uL (3.6-5.1); RED CELL DISTRIBUTION WIDTH 13.1 % (11.7-14.4)
[2021-11-19 01:03] LABS: ALBUMIN 3.8 g/dL (3.5-5.0); ALBUMIN/GLOBULIN RATIO 1.3 (0.8-2.0); ANION GAP 15.4 mmol/L (8-16); CALCIUM 9.5 mg/dL (8.4-10.2); CREATININE, SERUM 1.03 mg/dL (0.57-1.11); POTASSIUM 4.4 mmol/L (3.5-5.1)
[2021-11-19 01:24] LABS: CLARITY,URINE CLOUDY (CLEAR); COLOR,URINE YELLOW (YELLOW); KETONES,URINE 1+ (NEGATIVE); LEUKOCYTE ESTERASE ,URINE NEGATIVE (NEGATIVE); NITRITE,URINE POSITIVE (NEGATIVE); PROTEIN,URINE DIPSTICK NEGATIVE (NEGATIVE); URINE UROBILINOGEN 0.2 mg/dL (0.2 - 1)
[2021-11-19 01:40] LABS: BACTERIA,URINE MANY /HPF; EPITHELIAL CELLS,URINE FEW /LPF; RBC,URINE 0-5 /HPF (0-5); TRANSITIONAL EPI CELLS,URINE FEW; WBC,URINE (MAN) >50 /HPF (0-5)
[2021-11-19] MEDS ORDERED: CEPHALEXIN500 MG PO (01:45)
[2021-11-19] MEDS ORDERED: CEFTRIAXONE 1 GM VIAL IV ONE (01:45)
[2021-11-19] MEDS ORDERED: SODIUM CHLORIDE 0.9% 50ML 50 ML ONE (01:56)
[2021-11-19] MEDS ORDERED: CEFTRIAXONE 1 GM VIAL ONE (01:56)
[2021-11-19] MEDS ORDERED: CEFTRIAXONE 1 GM in SODIUM CHLORIDE 0.9% 50ML 50 ML IV ONE (02:00)
[2021-11-19 03:06] VITALS: BP 145/67
== END 2021-11-19 03:00 ==
LOC: ER 00:34
DX: R11.2 Nausea with vomiting, unspecified (principal); N39.0 Urinary tract infection, site not specified; E11.65 Type 2 diabetes mellitus with hyperglycemia; E11.40 Type 2 diabetes mellitus with diabetic neuropathy, unspecified; F03.90 Unspecified dementia, unspecified severity, without behavioral disturbance, psychotic disturbance, mood disturbance, and anxiety; E78.5 Hyperlipidemia, unspecified
CPT/HCPCS: 36415; 71045; 74018; 80053; 81001; 84484; 85025; 87086; 93005; 99284; J0696; 87186

== ENCOUNTER → 2022-12-19 | Outpatient (CLI) | payer MEDICARE, BC ==
[~2022-12-19] MED LIST changes: +CEPHALEXIN500 MG PO
== END ==
LOC: CARD 11:36
PROVIDERS: ATTEND Podiatrist Foot & Ankle Surgery
DX: I73.9 Peripheral vascular disease, unspecified (principal)
CPT/HCPCS: 93925

== ENCOUNTER 2022-12-30 23:02 | Emergency (ER) | payer MEDICARE, BC ==
[~2022-12-30] VITALS: Ht 162.6 cm; Wt 61.2 kg
[2022-12-31 01:59] VITALS: BP 156/75
== END 2022-12-31 01:50 | disposition home or self-care (01) ==
LOC: ER 23:07
DX: S09.90XA Unspecified injury of head, initial encounter (principal); S20.211A Contusion of right front wall of thorax, initial encounter; W19.XXXA Unspecified fall, initial encounter; E11.9 Type 2 diabetes mellitus without complications; F03.90 Unspecified dementia, unspecified severity, without behavioral disturbance, psychotic disturbance, mood disturbance, and anxiety; E78.5 Hyperlipidemia, unspecified; Z88.6 Allergy status to analgesic agent; Z88.8 Allergy status to other drugs, medicaments and biological substances; Z79.82 Long term (current) use of aspirin; Z79.84 Long term (current) use of oral hypoglycemic drugs; Z79.899 Other long term (current) drug therapy
CPT/HCPCS: 70450; 71101; 72125; 99283

== ENCOUNTER 2023-01-02 10:09 | Emergency (ER) | payer MEDICARE, BC ==
[~2023-01-02] VITALS: Ht 162.6 cm; Wt 61.2 kg
[2023-01-02] MEDS ORDERED: ACETAMINOPHEN 325 MG TAB PO ONE (10:45)
[2023-01-02 12:13] VITALS: BP 157/68
== END 2023-01-02 12:15 | disposition home or self-care (01) ==
LOC: ER 10:23
DX: M25.512 Pain in left shoulder (principal); E11.40 Type 2 diabetes mellitus with diabetic neuropathy, unspecified; E78.5 Hyperlipidemia, unspecified; F03.90 Unspecified dementia, unspecified severity, without behavioral disturbance, psychotic disturbance, mood disturbance, and anxiety; Z85.3 Personal history of malignant neoplasm of breast; R94.31 Abnormal electrocardiogram [ECG] [EKG]
CPT/HCPCS: 93005; 99283

== ENCOUNTER 2023-01-13 23:19 | Emergency (ER) | payer MEDICARE, BC ==
[~2023-01-13] VITALS: Ht 162.6 cm; Wt 68.5 kg
[2023-01-14 00:05] LABS: BASOPHILS % 0.2 % (0.0-1.0); EOSINOPHILS % 0.1 % (0.0-6.0); HEMATOCRIT 31.2 % (34.2-44.1); HEMOGLOBIN 10.4 g/dL (12.0-16.0); LYMPHOCYTES # (AUTO) 1.1 (1.0-3.2); LYMPHOCYTES % 12.8 % (18.0-39.1); MEAN CORPUSCULAR HEMOGLOBIN 31.7 pg (28-32); MEAN CORPUSCULAR HGB CONC 33.3 g/dL (31-35); MEAN CORPUSCULAR VOLUME 95.1 fL (81-99); MONOCYTES # (AUTO) 0.7 (0.2-0.8); NEUTROPHILS # (AUTO) 6.4 (2.1-6.9); NEUTROPHILS % 77.4 % (38.7-80.0); PLATELET COUNT 212 x10e3/uL (140-360); RED BLOOD COUNT 3.28 x10e6/uL (3.6-5.1); RED CELL DISTRIBUTION WIDTH 11.9 % (11.7-14.4)
[2023-01-14] MEDS: ACETAMINOPHEN 325 MG TAB PO ONE (00:16)
[2023-01-14 00:19] LABS: ALBUMIN 3.3 g/dL (3.5-5.0); ANION GAP 15.6 mmol/L (8-16); CALCIUM 8.4 mg/dL (8.4-10.2); CLARITY,URINE CLOUDY (CLEAR); COLOR,URINE YELLOW (YELLOW); CREATININE, SERUM 1.18 mg/dL (0.57-1.11); LEUKOCYTE ESTERASE ,URINE 1+ (NEGATIVE); NITRITE,URINE POSITIVE (NEGATIVE); POTASSIUM 4.6 mmol/L (3.5-5.1); PROTEIN,URINE DIPSTICK TRACE (NEGATIVE)
[2023-01-14 00:20] LABS: KETONES,URINE NEGATIVE (NEGATIVE); URINE UROBILINOGEN 0.2 mg/dL (0.2 - 1)
[2023-01-14 00:24] LABS: BACTERIA,URINE MANY /HPF; EPITHELIAL CELLS,URINE FEW /LPF; RENAL EPITHELIAL CELLS,URINE FEW; TRANSITIONAL EPI CELLS,URINE FEW; WBC,URINE (MAN) >50 /HPF (0-5)
[2023-01-14 00:26] LABS: CREATINE KINASE MB 0.6 ng/mL (0-5.0)
[2023-01-14] MEDS ORDERED: CEFDINIR300 MG PO (00:54)
[2023-01-14 01:25] VITALS: BP 150/60
== END 2023-01-14 01:20 | disposition home or self-care (01) ==
LOC: ER 23:24
DX: N39.0 Urinary tract infection, site not specified (principal); F03.90 Unspecified dementia, unspecified severity, without behavioral disturbance, psychotic disturbance, mood disturbance, and anxiety; F05 Delirium due to known physiological condition; E11.40 Type 2 diabetes mellitus with diabetic neuropathy, unspecified; Z79.84 Long term (current) use of oral hypoglycemic drugs; E78.5 Hyperlipidemia, unspecified; Z79.899 Other long term (current) drug therapy; Z79.82 Long term (current) use of aspirin; Z85.3 Personal history of malignant neoplasm of breast; Z90.12 Acquired absence of left breast and nipple
CPT/HCPCS: 36415; 71045; 80053; 81001; 82550; 82553; 83605; 84484; 85025; 87040; 87086; 87186; 93005; 99284; J0696; U0002

== ENCOUNTER 2023-01-20 18:02 | Emergency (ER) | payer MEDICARE, BC ==
[~2023-01-20] VITALS: Ht 162.6 cm; Wt 68.5 kg
[2023-01-20] MEDS ORDERED: SODIUM CHLORIDE FLUSH 10 ML SYR IV PRN (18:36)
[2023-01-20] MEDS ORDERED: KETOROLAC TROMETHAMINE 30 MG/ML VIAL IV ONE (18:45)
[2023-01-20 18:58] LABS: BASOPHILS # (AUTO) 0.1 (0.0-0.1); BASOPHILS % 0.8 % (0.0-1.0); EOSINOPHILS # (AUTO) 0.1 (0.0-0.4); EOSINOPHILS % 1.6 % (0.0-6.0); HEMATOCRIT 33.6 % (34.2-44.1); HEMOGLOBIN 10.9 g/dL (12.0-16.0); LYMPHOCYTES # (AUTO) 1.8 (1.0-3.2); LYMPHOCYTES % 27.9 % (18.0-39.1); MEAN CORPUSCULAR HEMOGLOBIN 31.2 pg (28-32); MEAN CORPUSCULAR HGB CONC 32.4 g/dL (31-35); MEAN CORPUSCULAR VOLUME 96.3 fL (81-99); MONOCYTES # (AUTO) 0.5 (0.2-0.8); MONOCYTES % 7.6 % (4.4-11.3); NEUTROPHILS % 61.9 % (38.7-80.0); PLATELET COUNT 282 x10e3/uL (140-360); RED BLOOD COUNT 3.49 x10e6/uL (3.6-5.1); RED CELL DISTRIBUTION WIDTH 11.9 % (11.7-14.4)
[2023-01-20 19:06] LABS: INR 0.98; PARTIAL THROMBOPLASTIN TIME 29.9 seconds (23.8-35.5); PROTHROMBIN TIME 13.5 seconds (11.9-14.5)
[2023-01-20 19:16] LABS: ALANINE AMINOTRANSFERASE 18 IU/L (0-55); ALBUMIN 3.4 g/dL (3.5-5.0); ALKALINE PHOSPHATASE 84 IU/L (40-150); ANION GAP 15.3 mmol/L (8-16); BLOOD UREA NITROGEN 31 mg/dL (7-26); BUN/CREATININE RATIO 23 (6-25); CALCIUM 9.4 mg/dL (8.4-10.2); CARBON DIOXIDE 23 mmol/L (22-29); CHLORIDE 103 mmol/L (98-107); CREATININE, SERUM 1.35 mg/dL (0.57-1.11); GLUCOSE 336 mg/dL (74-118); LIPASE 36 U/L (8-78); POTASSIUM 5.3 mmol/L (3.5-5.1); SODIUM 136 mmol/L (136-145)
[2023-01-20] MEDS ORDERED: SODIUM CHLORIDE 0.9% 1000ML 1,000 ML IV SCH (19:30)
[2023-01-20 21:16] VITALS: BP 174/65
== END 2023-01-20 21:17 | disposition home or self-care (01) ==
LOC: ER 18:07
DX: M25.512 Pain in left shoulder (principal); E11.649 Type 2 diabetes mellitus with hypoglycemia without coma; E78.5 Hyperlipidemia, unspecified; F03.90 Unspecified dementia, unspecified severity, without behavioral disturbance, psychotic disturbance, mood disturbance, and anxiety; Z88.6 Allergy status to analgesic agent; Z88.8 Allergy status to other drugs, medicaments and biological substances; Z79.84 Long term (current) use of oral hypoglycemic drugs; Z79.82 Long term (current) use of aspirin; Z79.899 Other long term (current) drug therapy; Z87.440 Personal history of urinary (tract) infections; Z85.3 Personal history of malignant neoplasm of breast
CPT/HCPCS: 36415; 71045; 73202; 80053; 82948; 83690; 84484; 85025; 85610; 85730; 93005; 99284; J1885; J7030

== ENCOUNTER 2023-10-01 10:29 | Emergency (ER) | payer MEDICARE, BC ==
[~2023-10-01] VITALS: Ht 162.6 cm; Wt 68.5 kg
[2023-10-01] MEDS ORDERED: ACETAMINOPHEN 325 MG TAB PO ONE (10:45)
[2023-10-01 11:09] LABS: BASOPHILS # (AUTO) 0.1 (0.0-0.1); BASOPHILS % 0.8 % (0.0-1.0); EOSINOPHILS # (AUTO) 0.4 (0.0-0.4); EOSINOPHILS % 4.5 % (0.0-6.0); HEMATOCRIT 33.2 % (34.2-44.1); HEMOGLOBIN 10.8 g/dL (12.0-16.0); LYMPHOCYTES # (AUTO) 1.3 (1.0-3.2); LYMPHOCYTES % 16.3 % (18.0-39.1); MEAN CORPUSCULAR HEMOGLOBIN 31.1 pg (28-32); MEAN CORPUSCULAR HGB CONC 32.5 g/dL (31-35); MEAN CORPUSCULAR VOLUME 95.7 fL (81-99); MONOCYTES # (AUTO) 0.8 (0.2-0.8); MONOCYTES % 9.8 % (4.4-11.3); NEUTROPHILS # (AUTO) 5.4 (2.1-6.9); NEUTROPHILS % 68.3 % (38.7-80.0); PLATELET COUNT 300 x10e3/uL (140-360); RED BLOOD COUNT 3.47 x10e6/uL (3.6-5.1); RED CELL DISTRIBUTION WIDTH 11.6 % (11.7-14.4); WHITE BLOOD COUNT 7.83 x10e3/uL (4.8-10.8)
[2023-10-01 11:24] LABS: ANION GAP 14.1 mmol/L (8-16); CREATININE, SERUM 1.22 mg/dL (0.57-1.11); POTASSIUM 4.1 mmol/L (3.5-5.1)
[2023-10-01 13:45] LABS: BILIRUBIN,URINE NEGATIVE (NEGATIVE); CLARITY,URINE CLEAR (CLEAR); COLOR,URINE YELLOW (YELLOW); GLUCOSE, URINE 500 (NEGATIVE); KETONES,URINE NEGATIVE (NEGATIVE); LEUKOCYTE ESTERASE ,URINE NEGATIVE (NEGATIVE); NITRITE,URINE NEGATIVE (NEGATIVE); PH,URINE 5.5 (5 - 7); PROTEIN,URINE DIPSTICK NEGATIVE (NEGATIVE); URINE UROBILINOGEN 0.2 mg/dL (0.2 - 1)
[2023-10-01] MEDS ORDERED: CEFDINIR300 MG PO (13:50)
[2023-10-01 13:57] LABS: BACTERIA,URINE FEW /HPF; EPITHELIAL CELLS,URINE FEW /LPF; WBC,URINE (MAN) 0-5 /HPF (0-5); YEAST,URINE FEW
[2023-10-01 14:35] VITALS: BP 144/83; PULSE 63; RESP 19; TEMP 98.3; O2SAT 99
== END 2023-10-01 14:52 | disposition home or self-care (01) ==
LOC: ER 10:34
DX: R50.9 Fever, unspecified (principal); N39.0 Urinary tract infection, site not specified; F03.90 Unspecified dementia, unspecified severity, without behavioral disturbance, psychotic disturbance, mood disturbance, and anxiety; E11.40 Type 2 diabetes mellitus with diabetic neuropathy, unspecified; E78.5 Hyperlipidemia, unspecified; Z85.3 Personal history of malignant neoplasm of breast
CPT/HCPCS: 36415; 80048; 81001; 85025; 87040; 87086; 87400; 93005; 99284; J0696; U0002